=== PATIENT | female | born 1955 | race Caucasian/White ===

== ENCOUNTER 2022-07-10 07:58 | Outpatient (CLI) | payer MEDICARE, SELFPAY ==
[2022-07-10 19:45] LABS: Alanine Aminotransferase 19 U/L (6-35); Alkaline Phosphatase 98 U/L (38-126); Anion Gap 15 mmol/L (8-16); Aspartate Amino Transferase 19 U/L (14-36); Bilirubin,Total 0.4 mg/dL (0.2-1.3); Blood Urea Nitrogen 12 mg/dL (7-17); Calcium 9.3 mg/dL (8.4-10.2); Carbon Dioxide 26 mmol/L (22-30); Chloride 100 mmol/L (98-107); Cholesterol 180 mg/dL (0-200); Estimated Glomerular Filt Rate > 60; Glucose 121 mg/dL (65-110); HDL Direct 55 mg/dL; Sodium 141 mmol/L (137-145); Triglycerides 228 mg/dL (<150)
[2022-07-10 19:47] LABS: Basophils Absolute Auto 0.1 K/mm3 (0.0-0.1); Basophils Percent Auto 0.4 % (0.2-1.2); Eosinophils Absolute Auto 0.2 K/mm3 (0-0.3); Eosinophils Percent Auto 0.9 % (0-4.4); Hematocrit 37.7 % (37.0-47.0); Hemoglobin 12.1 g/dL (12.0-15.0); Immature Granulocyte Percent A 0.5 % (0-0.5); Lymphocytes Absolute Auto 13.39 K/mm3 (0.9-3.2); Lymphocytes Percent Auto 71.5 % (18.3-44.2); Mean Corpuscular HGB Conc 32.1 g/dl (32-36); Mean Corpuscular Hemoglobin 28.7 pg (26-34); Mean Corpuscular Volume 89.3 fl (80-100); Mean Platelet Volume 11.7 fl (7.4-10.4); Monocytes Absolute Auto 1.1 K/mm3 (0.1-0.6); Neutrophils Absolute Auto 3.9 K/mm3 (1.3-6.7); Neutrophils Percent Auto 20.7 % (45.5-73.1); Platelet Count Result 190 k/mm3 (150-375); Red Blood Count 4.22 M/mm3 (4.2-5.4); Red Cell Distribution Width 13.5 % (11.5-14.5); White Blood Count 18.7 K/mm3 (4.5-10.0)
[2022-07-10 19:56] LABS: LDL Cholesterol Direct 71 mg/dL
[2022-07-10 20:02] LABS: Vitamin D 25 Hydroxy 27.5 ng/mL
[2022-07-10 20:10] LABS: Hemoglobin A1C 6.2 % (<5.7)
[2022-07-10 20:12] LABS: Microalbumin Urine Random 7.7 mg/L (0-16.7)
[2022-07-10 20:13] LABS: Creatinine Urine 79.3 mg/dL; MALB Creatinine Ratio 9.7 mg/g (0-30)
[2022-07-10 20:15] LABS: Thyroid Stimulating Hormone 0.202 uIU/mL (0.465-4.680)
== END 2022-07-10 07:59 | disposition home or self-care (01) ==
LOC: ANHGOSHLAB 08:01
PROVIDERS: PCP Family Medicine; Visit Provider Family Medicine
DX: C91.10 Chronic lymphocytic leukemia of B-cell type not having achieved remission (principal); E10.8 Type 1 diabetes mellitus with unspecified complications; Z96.41 Presence of insulin pump (external) (internal); E07.9 Disorder of thyroid, unspecified; Z78.0 Asymptomatic menopausal state; Z79.899 Other long term (current) drug therapy
CPT/HCPCS: 36415; 80053; 80061; 82043; 82306; 83036; 84443; 85025

== ENCOUNTER 2022-09-17 09:09 | Outpatient (CLI) | payer MEDICARE, SELFPAY ==
[2022-09-17 09:57] LABS: Basophils Absolute Auto 0.1 K/mm3 (0.0-0.1); Basophils Percent Auto 0.4 % (0.2-1.2); Eosinophils Absolute Auto 0.2 K/mm3 (0-0.3); Hematocrit 38.7 % (37.0-47.0); Hemoglobin 12.3 g/dL (12.0-15.0); Immature Granulocyte Percent A 0.5 % (0-0.5); Lymphocytes Absolute Auto 13.81 K/mm3 (0.9-3.2); Mean Corpuscular HGB Conc 31.8 g/dl (32-36); Mean Corpuscular Hemoglobin 28.3 pg (26-34); Mean Platelet Volume 11.5 fl (7.4-10.4); Monocytes Absolute Auto 0.6 K/mm3 (0.1-0.6); Neutrophils Absolute Auto 3.9 K/mm3 (1.3-6.7); Neutrophils Percent Auto 21.1 % (45.5-73.1); Platelet Count Result 218 k/mm3 (150-375); Red Blood Count 4.35 M/mm3 (4.2-5.4); Red Cell Distribution Width 14.1 % (11.5-14.5); White Blood Count 18.7 K/mm3 (4.5-10.0)
[2022-09-17 10:13] LABS: Alanine Aminotransferase 30 U/L (6-35); Albumin Level 4.2 g/dL (3.5-5.1); Alkaline Phosphatase 115 U/L (38-126); Anion Gap 9 mmol/L (8-16); Aspartate Amino Transferase 25 U/L (14-36); Bilirubin,Total 0.5 mg/dL (0.2-1.3); Blood Urea Nitrogen 15 mg/dL (7-17); Carbon Dioxide 27 mmol/L (22-30); Chloride 101 mmol/L (98-107); Cholesterol 184 mg/dL (0-200); Estimated Glomerular Filt Rate > 60; Glucose 175 mg/dL (65-110); HDL Direct 57 mg/dL; Potassium 4.1 mmol/L (3.4-5.0); Sodium 137 mmol/L (137-145); Triglycerides 215 mg/dL (<150)
[2022-09-17 10:20] LABS: LDL Cholesterol Direct 72 mg/dL
[2022-09-17 10:41] LABS: Thyroid Stimulating Hormone 0.048 uIU/mL (0.465-4.680)
[2022-09-17 10:58] LABS: Hepatitis C Virus Antibody Negative (Negative)
[2022-09-17 11:49] LABS: Creatinine Urine 115.5 mg/dL
[2022-09-17 11:51] LABS: Hemoglobin A1C 6.3 % (<5.7)
[2022-09-17 11:53] LABS: MALB Creatinine Ratio 6.9 mg/g (0-30)
[2022-09-17 14:25] LABS: Free T4 Free Thyroxine 1.48 ng/mL (0.78-2.19)
== END 2022-09-17 09:10 | disposition home or self-care (01) ==
PROVIDERS: PCP Family Medicine; Visit Provider Physician Assistant
DX: I10 Essential (primary) hypertension (principal); K21.9 Gastro-esophageal reflux disease without esophagitis; E66.09 Other obesity due to excess calories; Z68.30 Body mass index [BMI] 30.0-30.9, adult; E10.8 Type 1 diabetes mellitus with unspecified complications; Z96.41 Presence of insulin pump (external) (internal); C91.10 Chronic lymphocytic leukemia of B-cell type not having achieved remission; Z79.899 Other long term (current) drug therapy
CPT/HCPCS: 36415; 80053; 80061; 82043; 83036; 84439; 84443; 85025; 86803

== ENCOUNTER 2022-10-09 08:25 | Outpatient (CLI) | payer MEDICARE, SELFPAY ==
[2022-10-09 08:38] LABS: Basophils Absolute Auto 0.1 K/mm3 (0.0-0.1); Basophils Percent Auto 0.3 % (0.2-1.2); Eosinophils Absolute Auto 0.1 K/mm3 (0-0.3); Eosinophils Percent Auto 0.5 % (0-4.4); Hematocrit 37.5 % (37.0-47.0); Hemoglobin 11.9 g/dL (12.0-15.0); Immature Granulocyte Absolute 0.11 K/mm3 (0.00-0.031); Immature Granulocyte Percent A 0.5 % (0-0.5); Lymphocytes Absolute Auto 15.56 K/mm3 (0.9-3.2); Lymphocytes Percent Auto 71.3 % (18.3-44.2); Mean Corpuscular HGB Conc 31.7 g/dl (32-36); Mean Corpuscular Hemoglobin 28.1 pg (26-34); Mean Corpuscular Volume 88.4 fl (80-100); Monocytes Absolute Auto 0.7 K/mm3 (0.1-0.6); Neutrophils Absolute Auto 5.3 K/mm3 (1.3-6.7); Neutrophils Percent Auto 24.4 % (45.5-73.1); Platelet Count Result 187 k/mm3 (150-375); Red Blood Count 4.24 M/mm3 (4.2-5.4); Red Cell Distribution Width 14.1 % (11.5-14.5); White Blood Count 21.8 K/mm3 (4.5-10.0)
[2022-10-09 08:42] LABS: Atypical Lymphocytes Present; Platelet Estimate Adequate (Adequate); Schistocytes None Seen (NORMAL)
[2022-10-09 09:11] LABS: Alanine Aminotransferase 30 U/L (6-35); Albumin Level 4.2 g/dL (3.5-5.1); Alkaline Phosphatase 114 U/L (38-126); Anion Gap 6 mmol/L (8-16); Aspartate Amino Transferase 31 U/L (14-36); Bilirubin,Total 0.6 mg/dL (0.2-1.3); Blood Urea Nitrogen 15 mg/dL (7-17); Calcium 9.2 mg/dL (8.4-10.2); Carbon Dioxide 29 mmol/L (22-30); Chloride 99 mmol/L (98-107); Estimated Glomerular Filt Rate 55; Glucose 171 mg/dL (65-110); Potassium 4.3 mmol/L (3.4-5.0); Sodium 134 mmol/L (137-145)
== END 2022-10-09 08:26 | disposition home or self-care (01) ==
LOC: ANHLAB 08:26
PROVIDERS: PCP Family Medicine; Visit Provider Internal Medicine Hematology & Oncology
DX: C91.10 Chronic lymphocytic leukemia of B-cell type not having achieved remission (principal)
CPT/HCPCS: 36415; 80053; 85025

== ENCOUNTER 2022-11-05 14:57 | Outpatient (CLI) | payer MEDICARE, SELFPAY ==
[2022-11-05 18:23] LABS: Thyroid Stimulating Hormone 0.165 uIU/mL (0.465-4.680)
[2022-11-05 19:57] LABS: Free T4 Free Thyroxine 1.55 ng/mL (0.78-2.19)
== END 2022-11-05 14:58 | disposition home or self-care (01) ==
LOC: ANHWCLAB 14:59
PROVIDERS: PCP Family Medicine; Visit Provider Internal Medicine Endocrinology, Diabetes & Metabolism
DX: E03.9 Hypothyroidism, unspecified (principal); E10.649 Type 1 diabetes mellitus with hypoglycemia without coma; M85.80 Other specified disorders of bone density and structure, unspecified site
CPT/HCPCS: 36415; 84439; 84443

== ENCOUNTER 2022-11-16 12:07 | Emergency (ER) | payer MEDICARE, SELFPAY ==
[2022-11-16 12:13] VITALS: BP 114/72; PULSE 75; RESP 16; TEMP 36.4; O2SAT 97
--- NOTE | 2022-11-16 12:21 | ED.URI ---
HPI - URI/Sore Throat General Chief Complaint: Upper Respiratory Infection Stated Complaint: shortness of breath, cough, wheezing, congestion Time Seen by Provider: 11/16/22 12:21 Source: patient, RN notes reviewed and old records reviewed Mode of arrival: ambulatory Limitations: no limitations History of Present Illness HPI Narrative: 66 year old female who presents to [facility] care with complaints of cold symptoms which has turned into a harsh cough with some shortness of breath and wheezing over the past week. Patient reports that at times she feels like she can't catch her breath. Patient states that she called her doctors office but they couldn't get her in to be seen. Patient reports history of asthma and bronchitis in the past.She states that she has been taking Mucinex and Tesslon Perles without relief. Patient reports highest temp 99F. MD elicited complaint: cough and other (wheezing and shortness of breath, congestion) Pertinent past history: pneumonia, asthma and other (bronchitis) Onset (ago): week(s) (1) Consistency: progressively worsening Pain scale (0-10): 2 Able to tolerate fluids by mouth: Yes Exacerbating factors: exertion Treatments prior to arrival: other (Muci Tesslon Perlesnex,) Related Data Home Medications Medication Instructions Recorded Confirmed alpha lipoic acid 50 mg capsule 50 mg PO DAILY 07/08/22 11/05/22 amlodipine 2.5 mg tablet 2.5 mg PO DAILY 07/08/22 11/05/22 hydrocortisone 20 mg tablet 20 mg PO DAILY 07/08/22 11/05/22 omeprazole 20 mg capsule,delayed 20 mg PO DAILY 07/08/22 11/05/22 release aspirin 81 mg tablet,delayed 81 mg PO DAILY 09/21/22 11/05/22 release cholecalciferol (vitamin D3) 25 25 mcg PO DAILY 09/21/22 11/05/22 mcg (1,000 unit) capsule insulin lispro 100 unit/mL 1 sliding scale dose subcut 11/05/22 11/05/22 subcutaneous solution (Humalog USEASDIRECTD U-100 Insulin) omnipod insulin delivery system 11/05/22 11/05/22 Allergies Allergy/AdvReac Type Severity Reaction Status Date / Time No Known Allergies Allergy Verified 11/05/22 13:33 Review of Systems Review of Systems: CONSTITUTIONAL:Reports malaise, chills, sweats, or fever. EYES: Denies visual changes, redness, or discharge. ENT: Reports rhinorrhea, congestion,no sinus pain, no otalgia, no sore throat. CARDIOVASCULAR: Denies chest pain, palpitations, or edema. RESPIRATORY: Reports cough.? Reports dyspnea with exertion. GASTROINTESTINAL: Denies abdominal pain, nausea, vomiting, diarrhea SKIN: Denies rash or itching. MUSCULOSKELETAL:Reports some myalgia. NEUROLOGIC: Denies headache. All systems reviewed & are unremarkable except as noted in HPI and below PMFSH Past Medical History Medical History (Updated 11/17/22 @ 10:26 by Aleida Garrett NP) Anxiety Asthma Bronchitis Cancer Frequent loose stools GERD (gastroesophageal reflux disease) HTN (hypertension) Kidney disease Trigger finger Surgical History Surgical History History of carpal tunnel release Family History Family History Mother Patient's mother is , Onset Age: 69 Family history of malignant neoplasm of ovary Father Patient's father is Diabetes mellitus, Onset Age: 64 Sibling Cerebrovascular accident, Onset Age: 23 Other Depression Family history of hearing loss Social History Social History Social History: Caffeine-Coffee, Tea, soda Smoking packs per day: 1 Smoking cigarettes per day: 20.0 Years smoked: 5 Smoking pack-years: 5.00 Smoking status: Former smoker Smoking end date: 06/13/87 Alcohol intake: current Alcohol use details: Wine-on weekends Substance use: never Substance use type: does not use Comments At time of signature, agree with nursing past medical, s
== END 2022-11-16 12:44 | disposition home or self-care (01) ==
PROVIDERS: Emergency Provider Registered Nurse; PCP Family Medicine
DX: J40 Bronchitis, not specified as acute or chronic (principal); I10 Essential (primary) hypertension; Z87.891 Personal history of nicotine dependence
CPT/HCPCS: 99213; G0463

== ENCOUNTER 2022-11-20 17:40 | Observation (INO) | payer MEDICARE, SELFPAY ==
--- NOTE | ~2022-11-20 | XR_ITS ---
EXAMINATION: XR chest 2V DATE: 11/20/2022 18:25 INDICATION: Shortness of breath and weakness TECHNIQUE: frontal and lateral views of the chest were obtained. COMPARISON: Chest radiograph dated 10/24/2017 FINDINGS: The lungs remain clear with no focal airspace opacities, pulmonary edema, pleural effusion or pneumot horax. The cardiomediastinal silhouette is normal. IMPRESSION: 1. No acute cardiopulmonary disease. Reviewed, dictated and finalized at location A. FILTER TANK TENDER
--- NOTE | ~2022-11-20 | CT_ITS ---
EXAMINATION: CTA chest PE protocol DATE: 11/20/2022 19:56 INDICATION: Tachypnea and shortness of breath. TECHNIQUE: Computed tomography (CT) pulmonary angiogram of the chest was performed with 100 mL Omnipa que-350 intravenous contrast. Additional 3D reconstructions utilizing coronal maximum intensity proje ction (MIP) were performed. Automated exposure control and iterative reconstruction technique were em ployed. The dose-length product was 496.21 mGy-cm. COMPARISON: None FINDINGS: Excellent contrast opacification of the pulmonary arteries. There is mild streak artifact from dense contrast in the superior vena cava and right atrium. No significant motion artifact yielding diagnost ic quality study which demonstrates no pulmonary embolism. No pneumonia, pulmonary edema, pleural eff usion or pneumothorax. Heart size is normal. No pericardial effusion. Thoracic aorta is normal in tasha iber with no dissection. No pathologically enlarged thoracic lymphadenopathy. Visualized upper abdome n is unremarkable. Moderate thoracic and severe upper lumbar spondylosis. IMPRESSION: 1. No acute cardiopulmonary disease. Reviewed, dictated and finalized at location A. ATRIC NEUROPSYCHOLOGIST
--- NOTE | 2022-11-20 18:00 | ECG_ITS ---
Measurements Intervals [place] Rate: 72 P: 57 AK: 133 QRS: 37 QRSD: 93 T: 55 QT: 390 QTc: 427 Interpretive Statements SINUS RHYTHM EARLY PRECORDIAL R/S TRANSITION ST-T WAVE ABNORMALITY IN ANT/INF LEADS- CONSIDER ISCHEMIA BASELINE ARTIFACT- I, II, III, AVR, AVF, V4 ABNORMAL ECG NO PREVIOUS ECG AVAILABLE FOR COMPARISON Electronically Signed On 11-20-2022 21:01:47 SALVAGE DETERMINER by Chris Scales D.O.
[2022-11-20 18:52] LABS: Hematocrit 37.8 % (37.0-47.0); Hemoglobin 12.6 g/dL (12.0-15.0); Mean Corpuscular HGB Conc 33.3 g/dl (32-36); Mean Corpuscular Volume 87.1 fl (80-100); Mean Platelet Volume 11.4 fl (7.4-10.4); Platelet Count Result 259 k/mm3 (150-375); Red Blood Count 4.34 M/mm3 (4.2-5.4); Red Cell Distribution Width 14.6 % (11.5-14.5); White Blood Count 35.3 K/mm3 (4.5-10.0)
[2022-11-20] MEDS: LORazepam INJ (*CRX) 2 MG/ML VIAL 0.5 MG IV PUSH ×2 (19:01→21:24)
[2022-11-20 19:02] LABS: INR 1.2; Prothrombin Time 14.5 Seconds (11.1-14.7)
[2022-11-20] MEDS: LACTATED RINGERS 1,000 ML 999 ML IV CONT ×2 (19:02→20:38)
[2022-11-20 19:03] LABS: Partial Thromboplastin Time 24.4 SECONDS (22.3-36.8)
[2022-11-20 19:10] LABS: Lymphocytes Absolute Manual 18.35 K/mm3 (1.1-4.5); Monocytes Percent Manual 2 % (3-9); Neutrophils Percent Manual 46 % (46-73); Platelet Estimate Adequate (Adequate); Schistocytes None Seen (NORMAL); Total Cells Counted 100
[2022-11-20 19:15] LABS: Beta-Hydroxybutyrate/Acetoacetate 0.14 mmol/L (0.02-0.27)
[2022-11-20 19:19] LABS: Alanine Aminotransferase 35 U/L (6-35); Albumin Level 4.5 g/dL (3.5-5.1); Alkaline Phosphatase 129 U/L (38-126); Anion Gap 10 mmol/L (8-16); Aspartate Amino Transferase 38 U/L (14-36); Bilirubin,Total 0.4 mg/dL (0.2-1.3); Blood Urea Nitrogen 14 mg/dL (7-17); Calcium 9.7 mg/dL (8.4-10.2); Carbon Dioxide 18 mmol/L (22-30); Chloride 102 mmol/L (98-107); Estimated Glomerular Filt Rate > 60; Glucose 184 mg/dL (65-110); Potassium 4.2 mmol/L (3.4-5.0); Sodium 130 mmol/L (137-145)
[2022-11-20 19:22] LABS: Fractional Inspired Oxygen 21 %; HCO3 VBG 17.1 mEq/l (24.0-30.0); PO2 VBG 56.3 mmHg (35.0-45.0)
[2022-11-20 19:25] LABS: pH VBG 7.567 (7.300-7.400)
[2022-11-20 19:26] LABS: Device ROOM AIR; PCO2 VBG 19.2 mmHg (42.0-48.0)
[2022-11-20 19:31] LABS: NT Pro B Type Natriuretic Pept 335 pg/mL (19.9-100); Troponin I < 0.012 ng/mL (0.000-0.034)
[2022-11-20 19:34] LABS: Lactic Acid Reflex 3.3 mmol/L (0.7-2.0)
--- NOTE | 2022-11-20 19:35 | ED.WEAKNESS ---
HPI - Weakness General Chief complaint: Weakness Stated complaint: near syncopal/bronchitis Time Seen by Provider: 11/20/22 18:08 History of Present Illness HPI Narrative: Patient is a 66-year-old female with a history of type 1 diabetes, hypertension, GERD presenting with shakiness. Patient states that she has had URI symptoms for the last week or so. She was seen at urgent care 4 days ago and started on prednisone, Z-Say, and given an inhaler. States that she has been taking a Z-Say and steroids and her breathing feels slightly better. States she still has a mild cough. Today around noon she started to feel shaky all over. States that it feels like she is trembling on the insides. She denies worsening dyspnea, chest pain, vomiting, diarrhea, dysuria, leg swelling. States that she has been feeling lightheaded. Related Data Home Medications Medication Instructions Recorded Confirmed alpha lipoic acid 50 mg capsule 50 mg PO DAILY 07/08/22 11/21/22 amlodipine 2.5 mg tablet 2.5 mg PO DAILY 07/08/22 11/21/22 cholecalciferol (vitamin D3) 25 25 mcg PO DAILY 09/21/22 11/21/22 mcg (1,000 unit) capsule insulin lispro 100 unit/mL 1 sliding scale dose subcut 11/05/22 11/21/22 subcutaneous solution (Humalog USEASDIRECTD U-100 Insulin) omnipod insulin delivery system 11/05/22 11/21/22 fluoxetine 40 mg capsule 80 mg PO DAILY 11/21/22 11/21/22 Allergies Allergy/AdvReac Type Severity Reaction Status Date / Time No Known Allergies Allergy Verified 11/05/22 13:33 Review of Systems Review of Systems: All systems reviewed & are unremarkable except as noted in HPI and below PMFSH Past Medical History Medical History Anxiety Asthma Bronchitis Cancer Frequent loose stools GERD (gastroesophageal reflux disease) HTN (hypertension) Kidney disease Trigger finger Surgical History Surgical History History of carpal tunnel release Family History Family History Mother Patient's mother is , Onset Age: 69 Family history of malignant neoplasm of ovary Father Patient's father is Diabetes mellitus, Onset Age: 64 Sibling Cerebrovascular accident, Onset Age: 23 Other Depression Family history of hearing loss Social History Social History Social History: Caffeine-Coffee, Tea, soda Smoking packs per day: 1 Smoking cigarettes per day: 20.0 Years smoked: 5 Smoking pack-years: 5.00 Smoking status: Former smoker Tobacco type: cigarettes Smoking end date: 09/13/97 Alcohol intake: current Drinks per week: 6 Alcohol use details: Wine-on weekends Substance use: never Substance use type: does not use Lack of Transportation: No Lack of Food: Never True Current Housing: I Have Housing Concerned About Future Housing: No Difficulty Paying Gas/Electric Bills: No Difficulty Paying for Meds: No Currently Unemployed: No Education: High School Diploma/GED Difficulty w/ Childcare or Family Care: No Spiritual care concerns: No Exam Narrative: GENERAL: Well-appearing, well-nourished, and in no acute distress. HEAD: Normocephalic, atraumatic. EYES: PERRLA and EOMI. ENT: Nares clear, no rhinorrhea or epistaxis. Mucous membranes moist. NECK: Supple. CHEST: tachypneic, breathing with pierced lips, no wheezing heard HEART: Regular rate and rhythm. No murmur heard. Normal peripheral pulses. ABDOMEN: Soft, nontender, nondistended EXTREMITIES: Normal range of motion. No edema. SKIN: Warm, dry, no rash. NEURO: No focal deficits. Alert and oriented x3. PSYCH: Normal mood and affect. Course Vital Signs Vital signs: Vital Signs Temperature 98.6 F 11/20/22 20:19 Pulse Rate 64 11/20/22 20:19 Respiratory Rate 20
[2022-11-20 19:36] LABS: Influenza A QL RT-PCR Negative (Negative); Influenza B QL RT-PCR Negative (Negative); SARS-CoV-2 RNA PCR Negative
[2022-11-20 20:19] VITALS: BP 168/69; PULSE 64; RESP 20; TEMP 37; O2SAT 98
[2022-11-20 20:52] LABS: Appearance Urine Clear (Clear); Bacteria Urine None Seen /hpf; Bilirubin Urine Negative (Negative); Blood Urine Negative (Negative); Color Urine Yellow (Yellow); Glucose Urine UA Negative (Negative); Ketones Urine Negative (Negative); Leukocyte Esterase Ur 2+ LEU/UL (Negative); Nitrate Urine Negative (Negative); Non Pathogenic Casts 0-2; Protein Urine Negative (Negative); RBC Urine 0-2 /hpf (0-2); Specific Grav Ur 1.012 (1.001-1.035); Squamous Epithelial Cell Urine Few /hpf (Few); Urobilinogen Urine 0.2 mg/dL (<2.0); WBC Urine 0-5 /hpf; pH Urine 7.5 (5.0-9.0)
[2022-11-20 20:56] LABS: Add Urine Microscopic? YES
--- NOTE | 2022-11-20 21:27 | PM.IMHP ---
H&P: HPI History of Present Illness Date/Time: 11/20/22 21:27 Chief Complaint: Weakness Narrative: This is a 66-year-old female with past medical history significant for insulin-dependent diabetes mellitus status post insulin pump implantation, COPD/emphysema, hypertension, generalized anxiety disorder, hypothyroidism, gastroesophageal reflux disease, patient presents to the emergency room due to generalized weakness, tremors, shortness of breath, wheezing states that just completed course of antibiotics for diverticulitis and fell with COPD exacerbation has been on p.o. steroids as well presents to the emergency room with complains of generalized weakness, tremors, fatigue, shortness of breath, cough, no sputum production, no fevers, no rigors, no chills. Preliminary workup was significant for CBC with leukocyte count of 35,000, a CT PE protocol was reported as: FINDINGS: Excellent contrast opacification of the pulmonary arteries. There is mild streak artifact from dense contrast in the superior vena cava and right atrium. No significant motion artifact yielding diagnostic quality study which demonstrates no pulmonary embolism. No pneumonia, pulmonary edema, pleural effusion or pneumothorax. Heart size is normal. No pericardial effusion. Thoracic aorta is normal in caliber with no dissection. No pathologically enlarged thoracic lymphadenopathy. Visualized upper abdomen is unremarkable. Moderate thoracic and severe upper lumbar spondylosis. IMPRESSION: 1. No acute cardiopulmonary disease. Patient tested negative for influenza type A type B and COVID-19 Patient has been admitted for further evaluation management and treatment. Review of Systems Review of Systems: Shortness of breath, generalized weakness, tremors. Constitutional: Constitutional: Denies chills, Denies fever(s), Denies malaise and Reports weakness Eyes: Eyes: Denies change in vision ENT: Denies dysphagia and Denies odynophagia Cardiovascular: Cardiovascular: Denies chest pain, Denies lightheadedness and Reports dyspnea Respiratory: Respiratory: Denies change in phlegm color, Reports cough, Denies excessive phlegm production, Reports dyspnea, Reports dyspnea on exertion and Reports wheezing Gastrointestinal: Gastrointestinal: Denies abdominal pain, Denies dyspepsia, Denies heartburn, Denies nausea and Denies vomiting Genitourinary: Genitourinary: Denies dysuria Musculoskeletal: Musculoskeletal: Reports muscle weakness Integumentary/Breasts: Skin/Breast: Denies rash Neurologic: Denies focal weakness and Denies Sensory deficit (Neuro) Psychiatric: Psychiatric: Reports no additional psychiatric complaints and Reports as per HPI Endocrine: Endocrine: Denies cold intolerance, Reports fatigue, Denies flushing, Denies heat intolerance, Denies polyphagia, Denies polydipsia and Denies palpitations Hematologic/Lymphatic: Hematologic/Lymphatic: Reports no additional hematologic/lymphatic complaints and Reports as per HPI Allergic/Immunologic: Allergic/Immunologic: Reports no additional allergic/immunologic complaints and Reports as per HPI PMFSH Past Medical History Medical History Anxiety Asthma Bronchitis Cancer Frequent loose stools GERD (gastroesophageal reflux disease) HTN (hypertension) Kidney disease Trigger finger Surgical History Surgical History History of carpal tunnel release Family History Family History Mother Patient's mother is , Onset Age: 69 Family history of malignant neoplasm of ovary Father Patient's father is Diabetes mellitus, Onset Age: 64 Sibling Cerebrovascular accident, Onset Age: 23 Other Depression Family history of hearing loss Social History Social History (Reviewed 11/20/22 @ 19:37 by Britany Shafer
[2022-11-20 22:17] VITALS: BP 157/79; PULSE 56; RESP 20; O2SAT 100
[2022-11-20 22:18] VITALS: PULSE 61
[2022-11-20 22:22] LABS: Reflex Lactic Acid Yes or No Add Lactic
[2022-11-20 22:43] LABS: Troponin I < 0.012 ng/mL (0.000-0.034)
[2022-11-20 23:38] LABS: Glucose Point of Care 106 mg/dl (65-105)
[2022-11-21 00:37] LABS: Lactic Acid 2.9 mmol/L (0.7-2.0)
--- NOTE | 2022-11-21 00:42 | ADMGEN ---
This patient, Jennifer Dahl, was admitted to 2 Medical Room 255-01. Patient/family oriented to hospital policies and general routines including ID bracelet, bed and alarms, visiting hours, pain management, procedures, bathroom and other care routines, personal items, smoking policy, room service/diet, and visiting hours. Information on how to activate the Rapid Response Team has been discussed. Patient/Family are encouraged to report perceived risks to care and to ask questions if they do not understand what they are told or what they should do.
[2022-11-21 00:45] VITALS: BP 165/69; PULSE 58; RESP 20; TEMP 36.7; O2SAT 100; BMI 30.5
[2022-11-21 01:17] LABS: Thyroid Stimulating Hormone Reflex 0.805 uIU/mL (0.465-4.68)
[2022-11-21] MEDS: ALPRAZolam (*CRX) 0.5 MG TABLET 1 MG PO ×2 (02:17→21:24)
[2022-11-21 02:21] LABS: Troponin I < 0.012 ng/mL (0.000-0.034)
[2022-11-21 04:18] LABS: Need Manual Microscopic Reviewed
[2022-11-21 06:00] VITALS: BP 118/51; PULSE 72; RESP 20; TEMP 36.6; O2SAT 99
[2022-11-21] MEDS: lamoTRIgine 50 MG TABLET 150 MG PO (08:36)
[2022-11-21] MEDS: FLUoxetine HCL 20 MG CAPSULE 80 MG PO (08:37)
[2022-11-21] MEDS: IRBESARTAN 150 MG TABLET 300 MG PO (08:37)
[2022-11-21] MEDS: CHOLECALCIFEROL 1,000 UNITS TABLET 1000 UNITS PO (08:37)
[2022-11-21] MEDS: LEVOTHYROXINE SODIUM 150 MCG TABLET PO (08:37)
[2022-11-21] MEDS: PANTOPRAZOLE 40 MG TABLET PO (08:38)
[2022-11-21 08:40] VITALS: O2SAT 99
[2022-11-21 08:43] VITALS: BP 138/88; PULSE 66; RESP 14; O2SAT 99
[2022-11-21] MEDS: amLODIPine BESYLATE 2.5 MG TABLET PO (08:45)
[2022-11-21] MEDS: ATORVASTATIN 40 MG TABLET PO (08:48)
[2022-11-21 08:52] LABS: Glucose Point of Care 111 mg/dl (65-105)
--- NOTE | 2022-11-21 09:00 | PM.IMPN ---
Progress Note: A&P Assessment and Plan (1) COPD exacerbation: Code(s): J44.1 - Chronic obstructive pulmonary disease with (acute) exacerbation Status: Acute Assessment and Plan: CTA does not indicate any PE, nor any acute abnormalities Endorses increased shortness of breath, cough with sputum changes, and wheezes Appears to be an acute exacerbation of COPD at this time Schedule breathing treatments Change to IV Levaquin, since she failed outpatient treatments Supportive care Systemic steroids, changed to PO prednisone 40mg PO daily Add Claritin D for congestion relief Add Mucinex for the cough (2) Type 1 diabetes mellitus without complication, with terminal carman current use of insulin pump: Code(s): E10.9 - Type 1 diabetes mellitus without complications; Z96.41 - Presence of insulin pump (external) (internal) Status: Acute Assessment and Plan: Patient has been having hypoglycemic episodes due to poor diet in the last 2 weeks after having diverticulitis and COPD exacerbation Hypoglycemic protocol Hold home insulin Continue to trend glucose Accu-Cheks AC/HS (3) GERD (gastroesophageal reflux disease): Code(s): K21.9 - Gastro-esophageal reflux disease without esophagitis Status: Acute Assessment and Plan: PPI (4) Coarse tremors: Code(s): G25.2 - Other specified forms of tremor Status: Acute Assessment and Plan: could be a combination of hypoglycemia along with LABA and LAMA use as well as oral steroid Continue to monitor Resolved at this time (5) Leukocytosis: Code(s): D72.829 - Elevated white blood cell count, unspecified Status: Acute Assessment and Plan: WBC 27640 upon presentation Currently 30.1 Most likely a combination of steroids and CLL Baseline WBC appears to be 18 Continue to trend (6) CLL (chronic lymphocytic leukemia): Code(s): C91.10 - Chronic lymphocytic leukemia of B-cell type not having achieved remission Status: Acute Assessment and Plan: Follow-up in outpatient setting (7) Anxiety: Code(s): F41.9 - Anxiety disorder, unspecified Status: Acute Assessment and Plan: Continue home meds Time Spent With Patient Time: 51 minutes Time with patient: Greater than 35 minutes Subjective Date/time seen: 11/21/22899 Interval history: 11/21/22899 Patient is doing ok. She sound congested and stated that she did feel pretty congested. She denies any chest pain, shortness of breath, nausea, vomiting, diarrhea, or constipation. WBC is elevated however trending down. She does feel better today. She stated that the tremors are better today, and the shortness of breath is better as well. Spoke about her WBC and she stated that she feels it is her CLL. She also called me back to the room and stated that she started to have some diarrhea. Concern about the antibiotic use recently, which she stated she has one dose left, there could be a componet of C.diff. While asking her about breathing she would really refer to Bronchitis. She denies any body aches, weakness, fatigue, fevers, sweats or chills. She also stated that she has a cough, however it is non productive, but loose. 11/20/22? 21:27 This is a 66-year-old female with past medical history significant for insulin-dependent diabetes mellitus status post insulin pump implantation, COPD/emphysema, hypertension, generalized anxiety disorder, hypothyroidism, gastroesophageal reflux disease, patient presents to the emergency room due to generalized weakness, tremors, shortness of breath, wheezing states that just completed course of antibiotics for diverticulitis and fell with COPD exacerbation has been on p.o. steroids as well presents to the emergency room with complains of generalized weakness, tremors,
--- NOTE | 2022-11-21 09:00 | P.PNIM_ITS ---
Progress Note: A&P Assessment and Plan (1) COPD exacerbation: Code(s): J44.1 - Chronic obstructive pulmonary disease with (acute) exacerbation Status: Acute Assessment and Plan: * CTA does not indicate any PE, nor any acute abnormalities * Endorses increased shortness of breath, cough with sputum changes, and wheezes * Appears to be an acute exacerbation of COPD at this time * Schedule breathing treatments * Change to IV Levaquin, since she failed outpatient treatments * Supportive care * Systemic steroids, changed to PO prednisone 40mg PO daily * Add Claritin D for congestion relief * Add Mucinex for the cough (2) Type 1 diabetes mellitus without complication, with longterm current use of insulin pump: Code(s): E10.9 - Type 1 diabetes mellitus without complications; Z96.41 - Presence of insulin pump (external) (internal) Status: Acute Assessment and Plan: * Patient has been having hypoglycemic episodes due to poor diet in the last 2 weeks after having diverticulitis and COPD exacerbation * Hypoglycemic protocol * Hold home insulin * Continue to trend glucose * Accu-Cheks AC/HS (3) GERD (gastroesophageal reflux disease): Code(s): K21.9 - Gastro-esophageal reflux disease without esophagitis Status: Acute Assessment and Plan: * PPI (4) Coarse tremors: Code(s): G25.2 - Other specified forms of tremor Status: Acute Assessment and Plan: * could be a combination of hypoglycemia along with LABA and LAMA use as well as oral steroid * Continue to monitor * Resolved at this time (5) Leukocytosis: Code(s): D72.829 - Elevated white blood cell count, unspecified Status: Acute Assessment and Plan: * WBC 11770 upon presentation * Currently 30.1 * Most likely a combination of steroids and CLL * Baseline WBC appears to be 18 * Continue to trend (6) CLL (chronic lymphocytic leukemia): Code(s): C91.10 - Chronic lymphocytic leukemia of B-cell type not having achieved remission Status: Acute Assessment and Plan: * Follow-up in outpatient setting (7) Anxiety: Code(s): F41.9 - Anxiety disorder, unspecified Status: Acute Assessment and Plan: * Continue home meds Time Spent With Patient Time: 51 minutes Time with patient: Greater than 35 minutes Subjective Date/time seen: 11/21/22899 Interval history: 03/11/23 0900 Patient is doing ok. She sound congested and stated that she did feel pretty congested. She denies any chest pain, shortness of breath, nausea, vomiting, diarrhea, or constipation. WBC is elevated however trending down. She does feel better today. She stated that the tremors are better today, and the shortness of breath is better as well. Spoke about her WBC and she stated that she feels it is her CLL. She also called me back to the room and stated that she started to have some diarrhea. Concern about the antibiotic use recently, which she stated she has one dose left, there could be a componet of C.diff. While asking her about breathing she would really refer to Bronchitis. She denies any body aches, weakness, fatigue, fevers, sweats or chills. She also stated that she has a cough, however it is non productive, but loose.
[2022-11-21 09:31] LABS: Basophils Absolute Auto 0.1 K/mm3 (0.0-0.1); Basophils Percent Auto 0.3 % (0.2-1.2); Eosinophils Absolute Auto 0.1 K/mm3 (0-0.3); Eosinophils Percent Auto 0.4 % (0-4.4); Hematocrit 34.8 % (37.0-47.0); Hemoglobin 11.1 g/dL (12.0-15.0); Immature Granulocyte Absolute 0.21 K/mm3 (0.00-0.031); Immature Granulocyte Percent A 0.7 % (0-0.5); Lymphocytes Absolute Auto 23.26 K/mm3 (0.9-3.2); Lymphocytes Percent Auto 77.3 % (18.3-44.2); Mean Corpuscular HGB Conc 31.9 g/dl (32-36); Mean Corpuscular Hemoglobin 28.5 pg (26-34); Mean Corpuscular Volume 89.5 fl (80-100); Mean Platelet Volume 11.4 fl (7.4-10.4); Monocytes Absolute Auto 0.7 K/mm3 (0.1-0.6); Monocytes Percent Auto 2.5 % (2.6-8.5); Neutrophils Absolute Auto 5.7 K/mm3 (1.3-6.7); Neutrophils Percent Auto 18.8 % (45.5-73.1); Platelet Count Result 229 k/mm3 (150-375); Red Blood Count 3.89 M/mm3 (4.2-5.4); Red Cell Distribution Width 14.9 % (11.5-14.5); White Blood Count 30.1 K/mm3 (4.5-10.0)
[2022-11-21 09:44] LABS: Alanine Aminotransferase 30 U/L (6-35); Albumin Level 3.5 g/dL (3.5-5.1); Alkaline Phosphatase 98 U/L (38-126); Anion Gap 6 mmol/L (8-16); Aspartate Amino Transferase 31 U/L (14-36); Bilirubin,Total 0.6 mg/dL (0.2-1.3); Blood Urea Nitrogen 12 mg/dL (7-17); Calcium 8.6 mg/dL (8.4-10.2); Carbon Dioxide 23 mmol/L (22-30); Chloride 105 mmol/L (98-107); Estimated CRCL calculation 49 ml/min; Estimated Glomerular Filt Rate 55; Glucose 139 mg/dL (65-110); Magnesium 1.8 mg/dL (1.6-2.3); Potassium 4.3 mmol/L (3.4-5.0); Sodium 134 mmol/L (137-145)
[2022-11-21] MEDS: LORATADINE/PSEUDOEPHEDRINE (*CRX) 10/240 MG TABLET ER 24 HR 1 TAB PO (10:44)
[2022-11-21 11:21] LABS: Platelet Estimate Adequate (Adequate); Schistocytes None Seen (NORMAL); Smudge Cells MANY
[2022-11-21 12:14] LABS: Glucose Point of Care 188 mg/dl (65-105)
[2022-11-21] MEDS: levoFLOXacin 750 MG TABLET PO (12:18)
[2022-11-21 13:47] LABS: Glucose Point of Care 77 mg/dl (65-105)
[2022-11-21 14:00] VITALS: BP 117/62; PULSE 66; RESP 18; TEMP 36.5; O2SAT 99
[2022-11-21 15:07] LABS: Glucose Point of Care 143 mg/dl (65-105)
[2022-11-21 17:17] LABS: Glucose Point of Care 125 mg/dl (65-105)
[2022-11-21 20:40] VITALS: BP 120/64; PULSE 66; RESP 20; TEMP 37.1; O2SAT 98
[2022-11-21 21:27] LABS: Glucose Point of Care 161 mg/dl (65-105)
[2022-11-22 05:16] VITALS: BP 109/56; PULSE 62; RESP 20; TEMP 36.8; O2SAT 100
[2022-11-22 05:44] LABS: Hematocrit 33.5 % (37.0-47.0); Hemoglobin 10.8 g/dL (12.0-15.0); Mean Corpuscular HGB Conc 32.2 g/dl (32-36); Mean Corpuscular Hemoglobin 28.3 pg (26-34); Mean Corpuscular Volume 87.7 fl (80-100); Platelet Count Result 201 k/mm3 (150-375); Red Blood Count 3.82 M/mm3 (4.2-5.4); Red Cell Distribution Width 14.8 % (11.5-14.5); White Blood Count 25.4 K/mm3 (4.5-10.0)
[2022-11-22 06:00] LABS: Alanine Aminotransferase 28 U/L (6-35); Albumin Level 3.3 g/dL (3.5-5.1); Alkaline Phosphatase 84 U/L (38-126); Anion Gap 4 mmol/L (8-16); Aspartate Amino Transferase 29 U/L (14-36); Bilirubin,Total 0.4 mg/dL (0.2-1.3); Blood Urea Nitrogen 12 mg/dL (7-17); Calcium 8.4 mg/dL (8.4-10.2); Carbon Dioxide 25 mmol/L (22-30); Chloride 106 mmol/L (98-107); Estimated CRCL calculation 54 ml/min; Estimated Glomerular Filt Rate > 60; Glucose 97 mg/dL (65-110); Magnesium 1.9 mg/dL (1.6-2.3); Potassium 4.4 mmol/L (3.4-5.0); Sodium 135 mmol/L (137-145)
[2022-11-22 06:13] LABS: Atypical Lymphocytes Present; Lymphocytes Absolute Manual 16.76 K/mm3 (1.1-4.5); Monocytes Percent Manual 2 % (3-9); Neutrophils Percent Manual 32 % (46-73); Platelet Estimate Adequate (Adequate); Smudge Cells MANY; Total Cells Counted 100
[2022-11-22] MEDS: LEVOTHYROXINE SODIUM 150 MCG TABLET PO (06:41)
[2022-11-22 07:31] LABS: Schistocytes None Seen (NORMAL)
[2022-11-22] MEDS: FLUoxetine HCL 20 MG CAPSULE 80 MG PO (08:30)
[2022-11-22] MEDS: lamoTRIgine 50 MG TABLET 150 MG PO (08:30)
[2022-11-22] MEDS: CHOLECALCIFEROL 1,000 UNITS TABLET 1000 UNITS PO (08:31)
[2022-11-22] MEDS: IRBESARTAN 150 MG TABLET 300 MG PO (08:31)
[2022-11-22] MEDS: levoFLOXacin 750 MG TABLET PO (08:31)
[2022-11-22] MEDS: ATORVASTATIN 40 MG TABLET PO (08:32)
[2022-11-22] MEDS: PANTOPRAZOLE 40 MG TABLET PO (08:32)
[2022-11-22 08:37] VITALS: BP 119/80; PULSE 70; RESP 14; O2SAT 99
[2022-11-22] MEDS: LORATADINE/PSEUDOEPHEDRINE (*CRX) 10/240 MG TABLET ER 24 HR 1 TAB PO (08:38)
[2022-11-22] MEDS: amLODIPine BESYLATE 2.5 MG TABLET PO (08:38)
--- NOTE | 2022-11-22 08:45 | PM.DS ---
DS: Admitting Diagnosis Discharge Date 11/22/22 0845 Admitting Diagnosis COPD exacerbation DS: Discharge Diagnosis Discharge Diagnosis (1) COPD exacerbation: Code(s): J44.1 - Chronic obstructive pulmonary disease with (acute) exacerbation Status: Acute Assessment and Plan: CTA does not indicate any PE, nor any acute abnormalities Endorses increased shortness of breath, cough with sputum changes, and wheezes Appears to be an acute exacerbation of COPD at this time Schedule breathing treatments Change to IV Levaquin, since she failed outpatient treatments Supportive care Systemic steroids, changed to PO prednisone 40mg PO daily Add Claritin D for congestion relief Add Mucinex for the cough (2) Type 1 diabetes mellitus without complication, 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: Code(s): E10.9 - Type 1 diabetes mellitus without complications; Z96.41 - Presence of insulin pump (external) (internal) Status: Acute Assessment and Plan: Glucose is 97 Patient has been having hypoglycemic episodes due to poor diet in the last 2 weeks after having diverticulitis and COPD exacerbation Hypoglycemic protocol Hold home insulin Continue to trend glucose Accu-Cheks AC/HS (3) GERD (gastroesophageal reflux disease): Code(s): K21.9 - Gastro-esophageal reflux disease without esophagitis Status: Acute Assessment and Plan: PPI (4) Coarse tremors: Code(s): G25.2 - Other specified forms of tremor Status: Acute Assessment and Plan: could be a combination of hypoglycemia along with LABA and LAMA use as well as oral steroid Continue to monitor Resolved at this time (5) Leukocytosis: Code(s): D72.829 - Elevated white blood cell count, unspecified Status: Acute Assessment and Plan: WBC 82625 upon presentation Currently 25.4 Most likely a combination of steroids and CLL Baseline WBC appears to be 18 Continue to trend (6) CLL (chronic lymphocytic leukemia): Code(s): C91.10 - Chronic lymphocytic leukemia of B-cell type not having achieved remission Status: Acute Assessment and Plan: Follow-up in outpatient setting (7) Anxiety: Code(s): F41.9 - Anxiety disorder, unspecified Status: Acute Assessment and Plan: Continue home meds DS: Summary Hospital Course Hospital Course: Patient is a 66-year-old female with a past medical history of CLL, diabetes mellitus type 2, COPD emphysema, hypertension, anxiety, hypothyroidism who presented to the ED with complaints generalized weakness, tremors, shortness of breath, wheezes. Patient had recently completed a course of azithromycin and steroids. She presented to the ED after this did not work. WBC upon arrival was 35,000. Patient does have CLL [place] [address]. Currently white count is down to 25.4. CTA was performed and did not indicate any PE or acute abnormalities. Patient has been placed on IV Levaquin for further management and care. Systemic steroids have also been given as well. Patient did present with tremors however they have resolved at this time. Glucose has been managed appropriately and is currently 97 at this time. No acute events of hypoglycemia noted through stay. Patient has been walking the halls and is denying any current dyspnea upon exertion or shortness of breath. Patient is stable for discharge at this time for labs and vital signs. Patient is ready for discharge in is asking to be discharged at this time as well. Status at Discharge Functional status at discharge: independent ambulation Overall status at discharge: patient is progressing back to baseline Time Spent with Patient Time attestation: Total time spent providing and/or coordinating discharge services: 53 minutes Time s
--- NOTE | 2022-11-22 08:45 | P.DS_ITS ---
DS: Admitting Diagnosis Discharge Date 11/22/22 0845 Admitting Diagnosis COPD exacerbation DS: Discharge Diagnosis Discharge Diagnosis (1) COPD exacerbation: Code(s): J44.1 - Chronic obstructive pulmonary disease with (acute) exacerbation Status: Acute Assessment and Plan: * CTA does not indicate any PE, nor any acute abnormalities * Endorses increased shortness of breath, cough with sputum changes, and wheezes * Appears to be an acute exacerbation of COPD at this time * Schedule breathing treatments * Change to IV Levaquin, since she failed outpatient treatments * Supportive care * Systemic steroids, changed to PO prednisone 40mg PO daily * Add Claritin D for congestion relief * Add Mucinex for the cough (2) Type 1 diabetes mellitus without complication, with [facility] current use of insulin pump: Code(s): E10.9 - Type 1 diabetes mellitus without complications; Z96.41 - Presence of insulin pump (external) (internal) Status: Acute Assessment and Plan: * Glucose is 97 * Patient has been having hypoglycemic episodes due to poor diet in the last 2 weeks after having diverticulitis and COPD exacerbation * Hypoglycemic protocol * Hold home insulin * Continue to trend glucose * Accu-Cheks AC/HS (3) GERD (gastroesophageal reflux disease): Code(s): K21.9 - Gastro-esophageal reflux disease without esophagitis Status: Acute Assessment and Plan: * PPI (4) Coarse tremors: Code(s): G25.2 - Other specified forms of tremor Status: Acute Assessment and Plan: * could be a combination of hypoglycemia along with LABA and LAMA use as well as oral steroid * Continue to monitor * Resolved at this time (5) Leukocytosis: Code(s): D72.829 - Elevated white blood cell count, unspecified Status: Acute Assessment and Plan: * WBC 12302 upon presentation * Currently 25.4 * Most likely a combination of steroids and CLL * Baseline WBC appears to be 18 * Continue to trend (6) CLL (chronic lymphocytic leukemia): Code(s): C91.10 - Chronic lymphocytic leukemia of B-cell type not having achieved remission Status: Acute Assessment and Plan: * Follow-up in outpatient setting (7) Anxiety: Code(s): F41.9 - Anxiety disorder, unspecified Status: Acute Assessment and Plan: * Continue home meds DS: Summary Hospital Course Hospital Course: Patient is a 66-year-old female with a past medical history of CLL, diabetes mellitus type 2, COPD emphysema, hypertension, anxiety, hypothyroidism who presented to the ED with complaints generalized weakness, tremors, shortness of breath, wheezes. Patient had recently completed a course of azithromycin and steroids. She presented to the ED after this did not work. WBC upon arrival was 35,000. Patient does have C[place] [address]. Currently white count is down to 25.4. CTA was performed and did not indicate any PE or acute abnormalities. Patient has been placed on IV Levaquin for further management and care. Systemic steroids have also been given as well. Patient did present with tremors however they have resolved at this time. Glucose has been managed appropriately and is currently 97 at this time. No
[2022-11-22 08:47] LABS: Glucose Point of Care 187 mg/dl (65-105)
== END 2022-11-22 10:45 | disposition home or self-care (01) ==
LOC: ANHED 18:47 → ANH2MED 11-21 00:21
PROVIDERS: Emergency Medicine; Nurse Practitioner; Admitting Provider Internal Medicine; Emergency Provider Emergency Medicine; PCP Family Medicine; Visit Provider Chiropractor
DX: J44.1 Chronic obstructive pulmonary disease with (acute) exacerbation (principal); E10.9 Type 1 diabetes mellitus without complications; Z96.41 Presence of insulin pump (external) (internal); K21.9 Gastro-esophageal reflux disease without esophagitis; G25.2 Other specified forms of tremor; C91.10 Chronic lymphocytic leukemia of B-cell type not having achieved remission; F41.9 Anxiety disorder, unspecified; I10 Essential (primary) hypertension; Z20.822 Contact with and (suspected) exposure to COVID-19; N28.9 Disorder of kidney and ureter, unspecified; R94.31 Abnormal electrocardiogram [ECG] [EKG]; R06.02 Shortness of breath; R53.1 Weakness; F10.90 Alcohol use, unspecified, uncomplicated; Z87.891 Personal history of nicotine dependence; Z79.4 Long term (current) use of insulin; Z79.899 Other long term (current) drug therapy; Z83.3 Family history of diabetes mellitus
CPT/HCPCS: 36415; 71046; 71275; 80053; 81001; 82010; 82803; 82948; 83605; 83735; 83880; 84443; 84484; 85025; 85610; 85730; 87040; 87636; 93005; 96361; 96374; 96376; 99285; A9270; G0378; J2060; J7120; Q9967

== ENCOUNTER 2022-12-19 09:39 | Emergency (ER) | payer MEDICARE, SELFPAY ==
--- NOTE | ~2022-12-19 | CT_ITS ---
EXAMINATION: CT abdomen pelvis w con DATE: 12/19/2022 12:06 INDICATION: Nausea, vomiting, diarrhea. Rule out obstruction. TECHNIQUE: Computed tomography (CT) of the abdomen and pelvis was performed with 100 CC Omnipaque 350 intravenous contrast. Automated exposure control and iterative reconstruction technique were employe d. Exam dose: 801.04 mGy-cm total exam DLP. COMPARISON: 05/15/2016 CT abdomen pelvis FINDINGS: The lung bases are clear of infiltrate or consolidation. Normal heart size. No pericardial or pleural effusion. The liver, gallbladder, bile duct are unremarkable except for possible focal fatty infiltration of th e liver adjacent to the gallbladder. No pericholecystic fluid or fat stranding. There is pancreatic atrophy. No pancreatic mass lesion, calcification or ductal dilatation is identif ied. Normal splenic size. Hypoplastic adrenal glands. No suspicious renal mass lesion. No urinary tract calculus or hydroureteronephrosis. The urinary blad rajwinder is distended but appears unremarkable, without wall thickening. Retroverted uterus. Approximately 12 x 21 mm calcification in the right adnexal area. There is atherosclerotic calcification but normal caliber of the abdominal aorta. No intraperitoneal or retroperitoneal or pelvic mass lesion or adenopathy or ascites. There are numerous diverticula of the left and right colon. No CT evidence of diverticulitis. No tyler l obstruction, bowel wall thickening, pneumatosis or intraperitoneal free air. Small fat-containing umbilical hernia. Severe degenerative disc disease at L1-2. Degenerative change at the apophyseal joints of the lumbar and lumbosacral area. Osteopenia. No suspicious osteolytic or osteoblastic lesions are noted. IMPRESSION: Normal appendix. Diverticulosis of left and right colon; no CT evidence of diverticulitis is noted No bowel obstruction or intraperitoneal free air. Reviewed, dictated and finalized at [facility]. Reviewed, dictated and finalized at [facility]. IMPRESSION: Normal appendix. Diverticulosis of left and right colon; no CT evidence of diverticulitis is not ed No bowel obstruction or intraperitoneal free air.
[2022-12-19 09:39] VITALS: BP 124/87; PULSE 70; RESP 16; TEMP 36.4; O2SAT 100
[2022-12-19 10:35] VITALS: PULSE 62; RESP 18; O2SAT 100
[2022-12-19 10:52] LABS: Basophils Absolute Auto 0.1 K/mm3 (0.0-0.1); Basophils Percent Auto 0.3 % (0.2-1.2); Eosinophils Absolute Auto 0.2 K/mm3 (0-0.3); Eosinophils Percent Auto 0.8 % (0-4.4); Hematocrit 35.8 % (37.0-47.0); Hemoglobin 11.5 g/dL (12.0-15.0); Immature Granulocyte Percent A 0.4 % (0-0.5); Lymphocytes Percent Auto 77.8 % (18.3-44.2); Mean Corpuscular HGB Conc 32.1 g/dl (32-36); Mean Corpuscular Hemoglobin 28.7 pg (26-34); Mean Corpuscular Volume 89.3 fl (80-100); Mean Platelet Volume 11.5 fl (7.4-10.4); Monocytes Absolute Auto 0.8 K/mm3 (0.1-0.6); Monocytes Percent Auto 3.3 % (2.6-8.5); Neutrophils Absolute Auto 4.1 K/mm3 (1.3-6.7); Neutrophils Percent Auto 17.4 % (45.5-73.1); Platelet Count Result 192 k/mm3 (150-375); Red Blood Count 4.01 M/mm3 (4.2-5.4); Red Cell Distribution Width 14.9 % (11.5-14.5); White Blood Count 23.5 K/mm3 (4.5-10.0)
[2022-12-19 10:58] VITALS: BP 119/63; PULSE 60; RESP 18; O2SAT 100
[2022-12-19 11:06] LABS: Alanine Aminotransferase 39 U/L (6-35); Albumin Level 4.4 g/dL (3.5-5.1); Alkaline Phosphatase 105 U/L (38-126); Anion Gap 6 mmol/L (8-16); Aspartate Amino Transferase 40 U/L (14-36); Bilirubin,Total 0.9 mg/dL (0.2-1.3); Blood Urea Nitrogen 15 mg/dL (7-17); Calcium 9.4 mg/dL (8.4-10.2); Carbon Dioxide 25 mmol/L (22-30); Chloride 98 mmol/L (98-107); Estimated CRCL calculation 47 ml/min; Estimated Glomerular Filt Rate 55; Glucose 147 mg/dL (65-110); Lipase 30 U/L (23-300); Potassium 5.3 mmol/L (3.4-5.0); Sodium 129 mmol/L (137-145)
[2022-12-19 11:09] LABS: Atypical Lymphocytes Present; Platelet Estimate Adequate (Adequate); Schistocytes None Seen (NORMAL); Smudge Cells PRESENT
--- NOTE | 2022-12-19 11:28 | ED.ABDPAIN ---
HPI - Abdominal Pain General Chief Complaint: Abdominal Pain Stated Complaint: abd pain - history of diverticulitis Time Seen by Provider: 12/19/22 10:49 Source: patient Mode of arrival: ambulatory Limitations: no limitations History of Present Illness HPI narrative: This is a 67-year-old female with PMH of diverticulitis, CLL, COPD, type I DM who presents to the ED with chief complaint of left lower quadrant pain beginning 2 days ago. She reports nausea/vomiting/diarrhea for the past couple days as well. States she was able to eat a little bit of soup but is having trouble keeping other foods down. Has been able to drink water. Reports pain at a 3 out of 10 right now. States the pain stays in the left lower quadrant and will worsen throughout the day but usually goes away when she goes to sleep. Denies fevers, chills, chest pain, shortness of breath. Denies bloody stools or hematemesis. Related Data Home Medications Medication Instructions Recorded Confirmed alpha lipoic acid 50 mg capsule 50 mg PO DAILY 07/08/22 11/21/22 amlodipine 2.5 mg tablet 2.5 mg PO DAILY 07/08/22 11/21/22 cholecalciferol (vitamin D3) 25 25 mcg PO DAILY 09/21/22 11/21/22 mcg (1,000 unit) capsule insulin lispro 100 unit/mL 1 sliding scale dose subcut 11/05/22 11/21/22 subcutaneous solution (Humalog USEASDIRECTD U-100 Insulin) omnipod insulin delivery system 11/05/22 11/21/22 fluoxetine 40 mg capsule 80 mg PO DAILY 11/21/22 11/21/22 Allergies Allergy/AdvReac Type Severity Reaction Status Date / Time No Known Allergies Allergy Verified 11/05/22 13:33 Review of Systems Review of Systems: CONSTITUTIONAL: Denies fever, chills, or sweats. EYES: Denies visual changes, redness, or discharge. ENT: Denies rhinorrhea, congestion, sore throat, or otalgia. CARDIOVASCULAR: Denies chest pain, palpitations, or edema. RESPIRATORY: Denies cough or dyspnea. GASTROINTESTINAL: Endorses abdominal pain, nausea, vomiting, and diarrhea. Denies bloody stools or hematemesis. GENITOURINARY: Denies dysuria or hematuria. SKIN: Denies rash or itching. MUSCULOSKELETAL: Denies back pain, joint pain, or myalgia. NEUROLOGIC: Denies headache, numbness, dizziness, or weakness. PSYCHIATRIC: Denies anxiety or depression. [facility] Past Medical History Medical History Anxiety Asthma Bronchitis Cancer Frequent loose stools GERD (gastroesophageal reflux disease) HTN (hypertension) Kidney disease Trigger finger Surgical History Surgical History History of carpal tunnel release Family History Family History Mother Patient's mother is , Onset Age: 69 Family history of malignant neoplasm of ovary Father Patient's father is Diabetes mellitus, Onset Age: 64 Sibling Cerebrovascular accident, Onset Age: 23 Other Depression Family history of hearing loss Social History Social History Social History: Caffeine-Coffee, Tea, soda Smoking packs per day: 1 Smoking cigarettes per day: 20.0 Years smoked: 5 Smoking pack-years: 5.00 Smoking status: Former smoker Tobacco type: cigarettes Smoking end date: 09/13/97 Alcohol intake: current Drinks per week: 6 Alcohol use details: Wine-on weekends Substance use: never Substance use type: does not use Lack of Transportation: No Lack of Food: Never True Current Housing: I Have Housing Concerned About Future Housing: No Difficulty Paying Gas/Electric Bills: No Difficulty Paying for Meds: No Currently Unemployed: No Education: High School Diploma/GED Difficulty w/ Childcare or Family Care: No Spiritual care concerns: No Exam Narrative: GENERAL: Well-appearing, well-nourished, and in no acute distress. HEAD:
[2022-12-19] MEDS: SODIUM CHLORIDE 0.9% IV 1,000 ML 999 ML IV CONT (11:36)
[2022-12-19] MEDS: ONDANSETRON INJ 4 MG/2 ML VIAL IV PUSH (11:36)
[2022-12-19 11:40] LABS: Appearance Urine Clear (Clear); Bacteria Urine None Seen /hpf; Bilirubin Urine Negative (Negative); Blood Urine Negative (Negative); Color Urine Yellow (Yellow); Glucose Urine UA Negative (Negative); Ketones Urine Negative (Negative); Leukocyte Esterase Ur 2+ LEU/UL (Negative); Need Manual Microscopic Reviewed; Nitrate Urine Negative (Negative); Non Pathogenic Casts 0-2; Protein Urine Negative (Negative); RBC Urine 0-2 /hpf (0-2); Specific Grav Ur 1.008 (1.001-1.035); Squamous Epithelial Cell Urine Moderate /hpf (Few); Urobilinogen Urine 0.2 mg/dL (<2.0)
[2022-12-19 11:42] LABS: Add Urine Microscopic? YES
[2022-12-19 11:45] VITALS: PULSE 60; RESP 18; O2SAT 100
[2022-12-19 12:15] VITALS: BP 110/58
[2022-12-19 13:33] VITALS: PULSE 62; RESP 18; O2SAT 100
== END 2022-12-19 13:37 | disposition home or self-care (01) ==
PROVIDERS: Emergency Medicine; Emergency Provider Physician Assistant; PCP Family Medicine
DX: N39.0 Urinary tract infection, site not specified (principal); K52.9 Noninfective gastroenteritis and colitis, unspecified; J44.9 Chronic obstructive pulmonary disease, unspecified; C91.10 Chronic lymphocytic leukemia of B-cell type not having achieved remission; E10.9 Type 1 diabetes mellitus without complications; I10 Essential (primary) hypertension; N28.9 Disorder of kidney and ureter, unspecified; K21.9 Gastro-esophageal reflux disease without esophagitis; F41.9 Anxiety disorder, unspecified; Z96.41 Presence of insulin pump (external) (internal); Z79.4 Long term (current) use of insulin; Z87.891 Personal history of nicotine dependence; K57.90 Diverticulosis of intestine, part unspecified, without perforation or abscess without bleeding
CPT/HCPCS: 36415; 74177; 80053; 81001; 83690; 85025; 87086; 87088; 96361; 96374; 99284; J2405; J7030; Q9967

== ENCOUNTER → 2023-01-28 13:14 | Outpatient (CLI) | payer MEDICARE, SELFPAY ==
--- NOTE | ~2023-01-28 | MM_ITS ---
EXAMINATION: MM screening [facility] BI w mitch HISTORY: Screening mammogram TECHNIQUE: Craniocaudal and mediolateral oblique 3-D tomosynthesis images were obtained and synthetic 2-D images were generated. CAD analysis was submitted and interpreted. COMPARISON: 07/26/2018, 07/06/2017, 06/30/2017 BREAST PARENCHYMAL COMPOSITION: There are scattered areas of fibroglandular density. FINDINGS: No suspicious mass, calcification, or architectural distortion are identified in either romain ast to suggest malignancy. There has been no suspicious interval change. IMPRESSION: 1. No mammographic evidence of malignancy. 2. Recommend routine screening mammography in one year. BI-RADS Category 1: Negative Reviewed, dictated and finalized at location [facility].
== END ==
PROVIDERS: PCP Family Medicine; Visit Provider Family Medicine
DX: Z12.31 Encounter for screening mammogram for malignant neoplasm of breast (principal)
CPT/HCPCS: 77063; 77067

== ENCOUNTER 2023-04-02 08:19 | Outpatient (CLI) | payer MEDICARE, SELFPAY ==
[2023-04-02 19:21] LABS: Thyroid Stimulating Hormone 0.228 uIU/mL (0.465-4.680)
[2023-04-02 20:20] LABS: Free T4 Free Thyroxine 1.55 ng/mL (0.78-2.19)
== END 2023-04-02 08:20 | disposition home or self-care (01) ==
LOC: ANHGOSHLAB 08:21
PROVIDERS: PCP Family Medicine; Visit Provider Internal Medicine Endocrinology, Diabetes & Metabolism
DX: E03.9 Hypothyroidism, unspecified (principal); E10.9 Type 1 diabetes mellitus without complications; Z96.41 Presence of insulin pump (external) (internal)
CPT/HCPCS: 36415; 84439; 84443

== ENCOUNTER 2023-04-05 07:05 | Outpatient (CLI) | payer MEDICARE, SELFPAY ==
[2023-04-05 07:26] LABS: Basophils Absolute Auto 0.1 K/mm3 (0.0-0.1); Basophils Percent Auto 0.4 % (0.2-1.2); Eosinophils Absolute Auto 0.2 K/mm3 (0-0.3); Eosinophils Percent Auto 0.9 % (0-4.4); Hematocrit 36.3 % (37.0-47.0); Hemoglobin 11.7 g/dL (12.0-15.0); Immature Granulocyte Absolute 0.13 K/mm3 (0.00-0.031); Immature Granulocyte Percent A 0.5 % (0-0.5); Lymphocytes Absolute Auto 20.32 K/mm3 (0.9-3.2); Lymphocytes Percent Auto 77.7 % (18.3-44.2); Mean Corpuscular HGB Conc 32.2 g/dl (32-36); Mean Corpuscular Hemoglobin 29.4 pg (26-34); Mean Corpuscular Volume 91.2 fl (80-100); Mean Platelet Volume 10.8 fl (7.4-10.4); Monocytes Absolute Auto 0.7 K/mm3 (0.1-0.6); Monocytes Percent Auto 2.5 % (2.6-8.5); Neutrophils Absolute Auto 4.7 K/mm3 (1.3-6.7); Platelet Count Result 202 k/mm3 (150-375); Red Blood Count 3.98 M/mm3 (4.2-5.4); Red Cell Distribution Width 13.7 % (11.5-14.5); White Blood Count 26.1 K/mm3 (4.5-10.0)
[2023-04-05 07:35] LABS: Hemoglobin A1C 6.8 % (<5.7)
[2023-04-05 07:38] LABS: Alanine Aminotransferase 32 U/L (6-35); Albumin Level 4.1 g/dL (3.5-5.1); Alkaline Phosphatase 91 U/L (38-126); Anion Gap 10 mmol/L (8-16); Aspartate Amino Transferase 30 U/L (14-36); Bilirubin,Total 0.4 mg/dL (0.2-1.3); Blood Urea Nitrogen 20 mg/dL (7-17); Calcium 9.4 mg/dL (8.4-10.2); Carbon Dioxide 23 mmol/L (22-30); Chloride 98 mmol/L (98-107); Cholesterol 209 mg/dL (0-200); Estimated Glomerular Filt Rate 49; Glucose 133 mg/dL (65-110); HDL Direct 69 mg/dL; Potassium 5.2 mmol/L (3.4-5.0); Sodium 131 mmol/L (137-145); Triglycerides 211 mg/dL (<150)
[2023-04-05 07:49] LABS: LDL Cholesterol Direct 76 mg/dL
[2023-04-05 07:57] LABS: Vitamin D 25 Hydroxy 39.4 ng/mL
[2023-04-05 08:07] LABS: Thyroid Stimulating Hormone 0.271 uIU/mL (0.465-4.680)
[2023-04-05 09:31] LABS: Platelet Estimate Adequate (Adequate); Schistocytes None Seen (NORMAL); Smudge Cells FEW
== END 2023-04-05 07:06 | disposition home or self-care (01) ==
LOC: ANHLAB 07:08
PROVIDERS: PCP Family Medicine; Visit Provider Physician Assistant
DX: C91.10 Chronic lymphocytic leukemia of B-cell type not having achieved remission (principal); E03.9 Hypothyroidism, unspecified; E10.8 Type 1 diabetes mellitus with unspecified complications; E55.9 Vitamin D deficiency, unspecified; E78.5 Hyperlipidemia, unspecified; I10 Essential (primary) hypertension; K21.9 Gastro-esophageal reflux disease without esophagitis; Z79.899 Other long term (current) drug therapy; Z96.41 Presence of insulin pump (external) (internal)
CPT/HCPCS: 36415; 80053; 80061; 82306; 83036; 84439; 84443; 85025

== ENCOUNTER 2023-05-27 10:49 | Outpatient (CLI) | payer MEDICARE, SELFPAY ==
[2023-05-27 11:15] LABS: Basophils Absolute Auto 0.1 K/mm3 (0.0-0.1); Basophils Percent Auto 0.4 % (0.2-1.2); Eosinophils Absolute Auto 0.3 K/mm3 (0-0.3); Eosinophils Percent Auto 1.5 % (0-4.4); Hemoglobin 11.2 g/dL (12.0-15.0); Immature Granulocyte Absolute 0.16 K/mm3 (0.00-0.031); Immature Granulocyte Percent A 0.8 % (0-0.5); Lymphocytes Absolute Auto 13.72 K/mm3 (0.9-3.2); Lymphocytes Percent Auto 72.7 % (18.3-44.2); Mean Corpuscular HGB Conc 31.1 g/dl (32-36); Mean Corpuscular Hemoglobin 29.1 pg (26-34); Mean Corpuscular Volume 93.5 fl (80-100); Mean Platelet Volume 11.1 fl (7.4-10.4); Monocytes Absolute Auto 0.6 K/mm3 (0.1-0.6); Neutrophils Absolute Auto 4.1 K/mm3 (1.3-6.7); Neutrophils Percent Auto 21.6 % (45.5-73.1); Platelet Count Result 179 k/mm3 (150-375); Red Blood Count 3.85 M/mm3 (4.2-5.4); Red Cell Distribution Width 14.4 % (11.5-14.5); White Blood Count 18.9 K/mm3 (4.5-10.0)
[2023-05-27 11:27] LABS: Alanine Aminotransferase 33 U/L (6-35); Albumin Level 4.1 g/dL (3.5-5.1); Alkaline Phosphatase 99 U/L (38-126); Anion Gap 8 mmol/L (8-16); Aspartate Amino Transferase 35 U/L (14-36); Bilirubin,Total 0.4 mg/dL (0.2-1.3); Blood Urea Nitrogen 18 mg/dL (7-17); Calcium 9.3 mg/dL (8.4-10.2); Carbon Dioxide 24 mmol/L (22-30); Chloride 100 mmol/L (98-107); Estimated Glomerular Filt Rate 49; Glucose 182 mg/dL (65-110); Lactate Dehydrogenase 194 U/L (120-246); Potassium 4.6 mmol/L (3.4-5.0); Sodium 132 mmol/L (137-145)
[2023-05-27 11:34] LABS: Immunoglobulin A 50 mg/dL (70-400); Immunoglobulin G 443 mg/dL (700-1600); Immunoglobulin M 37 mg/dL (40-230)
== END 2023-05-27 10:50 | disposition home or self-care (01) ==
PROVIDERS: PCP Family Medicine; Visit Provider Internal Medicine Hematology & Oncology
DX: C91.10 Chronic lymphocytic leukemia of B-cell type not having achieved remission (principal)
CPT/HCPCS: 36415; 80053; 82784; 83615; 85025

== ENCOUNTER → 2023-09-10 10:41 | Outpatient (CLI) | payer MEDICARE, SELFPAY ==
--- NOTE | ~2023-09-10 | CT_ITS ---
EXAMINATION: CT abdomen pelvis wo con DATE: 09/10/2023 11:10 INDICATION: Nonobstructive gastroenteritis and colitis, left lower quadrant pain TECHNIQUE: Computed tomography (CT) of the abdomen and pelvis was performed without intravenous contr ast. The dose-length product (DLP) was 889.02 mGy-cm. Automated exposure control and iterative recons truction technique were employed. COMPARISON: 12/19/2022 FINDINGS: Minimal dependent atelectasis is present in the lung bases. The heart size is normal. There is a trace pericardial effusion. The liver, spleen, pancreas, gallbladder, and adrenal glands are no rmal. The kidneys are unremarkable. No pathologically enlarged abdominal or pelvic lymph nodes are id entified. No free intraperitoneal gas or evidence of bowel obstruction. Colonic diverticulosis is pre sent without evidence of diverticulitis. The appendix is normal. There is severe lumbar spondylosis a t L1-2. IMPRESSION: 1. Diverticulosis without evidence of diverticulitis. Reviewed, dictated and finalized at location [facility]. [employer]
== END ==
PROVIDERS: PCP Family Medicine; Visit Provider Family Medicine
DX: K52.9 Noninfective gastroenteritis and colitis, unspecified (principal); K57.90 Diverticulosis of intestine, part unspecified, without perforation or abscess without bleeding
CPT/HCPCS: 74176

== ENCOUNTER 2023-09-14 07:48 | Outpatient (CLI) | payer MEDICARE, SELFPAY ==
[2023-09-14 08:54] LABS: Free T4 Free Thyroxine 0.93 ng/mL (0.78-2.19)
== END 2023-09-14 07:49 | disposition home or self-care (01) ==
LOC: ANHLAB 07:50
PROVIDERS: PCP Family Medicine; Visit Provider Internal Medicine Endocrinology, Diabetes & Metabolism
DX: E03.9 Hypothyroidism, unspecified (principal)
CPT/HCPCS: 36415; 84439; 84443

== ENCOUNTER 2023-09-23 08:02 | Outpatient (CLI) | payer MEDICARE, SELFPAY ==
[2023-09-23 09:00] LABS: Alanine Aminotransferase 49 U/L (6-35); Alkaline Phosphatase 90 U/L (38-126); Anion Gap 7 mmol/L (8-16); Aspartate Amino Transferase 37 U/L (14-36); Bilirubin,Total 0.5 mg/dL (0.2-1.3); Blood Urea Nitrogen 13 mg/dL (7-17); Calcium 9.2 mg/dL (8.4-10.2); Carbon Dioxide 29 mmol/L (22-30); Chloride 101 mmol/L (98-107); Estimated Glomerular Filt Rate > 60; Glucose 167 mg/dL (65-110); Potassium 4.1 mmol/L (3.4-5.0); Sodium 137 mmol/L (137-145)
[2023-09-23 10:00] LABS: Hemoglobin A1C 6.7 % (<5.7)
== END 2023-09-23 08:03 | disposition home or self-care (01) ==
PROVIDERS: PCP Family Medicine; Visit Provider Family Medicine
DX: E03.9 Hypothyroidism, unspecified (principal); E10.65 Type 1 diabetes mellitus with hyperglycemia; Z79.52 Long term (current) use of systemic steroids
CPT/HCPCS: 36415; 80053; 83036; 84443

== ENCOUNTER 2023-10-20 09:55 | Outpatient (CLI) | payer MEDICARE, SELFPAY ==
[2023-10-20 11:19] LABS: Thyroid Stimulating Hormone 0.256 uIU/mL (0.465-4.680)
[2023-10-25 12:28] LABS: Immunoglobulin A 58 mg/dL (70-320); TTG IGA AB <1.0 U/mL (<15.0); Tissue Transglutaminase IgG Ab <1.0 U/mL (<15.0)
== END 2023-10-20 09:56 | disposition home or self-care (01) ==
LOC: ANHLAB 09:56
PROVIDERS: PCP Family Medicine; Referring Provider Internal Medicine Endocrinology, Diabetes & Metabolism; Visit Provider Nurse Practitioner Family
DX: F41.9 Anxiety disorder, unspecified (principal); E03.9 Hypothyroidism, unspecified; R19.7 Diarrhea, unspecified
CPT/HCPCS: 36415; 82784; 84439; 84443; 86364

== ENCOUNTER 2023-10-21 09:44 | Outpatient (CLI) | payer MEDICARE, SELFPAY ==
[2023-10-29 00:21] LABS: Calprotectin, Stool 232 mcg/g
== END 2023-10-21 09:45 | disposition home or self-care (01) ==
LOC: ANHLAB 09:45
PROVIDERS: PCP Family Medicine; Visit Provider Nurse Practitioner Family
DX: R19.7 Diarrhea, unspecified (principal)
CPT/HCPCS: 83993; 87045; 87177; 87209; 87427; 87449

== ENCOUNTER 2023-12-15 10:41 | Outpatient (CLI) | payer MEDICARE, SELFPAY ==
--- NOTE | ~2023-12-15 | XR_ITS ---
XR cervical spine min 6V DATE: 12/15/2023 11:13 INDICATION: Neck pain TECHNIQUE: Flexion and extension lateral views. AP, open-mouth, lateral and bilateral oblique views COMPARISON: None FINDINGS: C1 and C2 are normally aligned and the odontoid process is intact. No fracture or dislocati on or locked facet or prevertebral soft tissue swelling. There is minimal anterolisthesis at C4-5. There is moderate degenerative disc disease at C3-4. There is severe degenerative disc disease at C5-6 and C6-7. There is associated minimal retrolisthesi s at C5-6. Uncovertebral joint spurring encroaches particularly prominently upon the anterior aspect of the righ t C4, C6 and C7 neural foramina and left C4, C5, C6 and especially C7 neural foramina. No instability on flexion or extension is noted. IMPRESSION: Prominent cervical spondylosis; no fracture or dislocation or locked facet Reviewed, dictated and finalized at location [facility]. IMPRESSION: Prominent cervical spondylosis; no fracture or dislocation or marlen d facet
== END 2023-12-15 10:42 | disposition home or self-care (01) ==
PROVIDERS: PCP Family Medicine; Visit Provider Family Medicine
DX: S13.4XXA Sprain of ligaments of cervical spine, initial encounter (principal); Z79.52 Long term (current) use of systemic steroids; M85.852 Other specified disorders of bone density and structure, left thigh; X58.XXXA Exposure to other specified factors, initial encounter; M47.892 Other spondylosis, cervical region
CPT/HCPCS: 72052

== ENCOUNTER 2024-01-21 09:51 | Outpatient (CLI) | payer MEDICARE, SELFPAY ==
[2024-01-21 10:09] LABS: Hematocrit 36.8 % (37.0-47.0); Hemoglobin 11.8 g/dL (12.0-15.0); Mean Corpuscular HGB Conc 32.1 g/dl (32-36); Mean Corpuscular Volume 90.4 fl (80-100); Mean Platelet Volume 10.5 fl (7.4-10.4); Platelet Count Result 190 k/mm3 (150-375); Red Blood Count 4.07 M/mm3 (4.2-5.4); Red Cell Distribution Width 14.6 % (11.5-14.5); White Blood Count 20.6 K/mm3 (4.5-10.0)
[2024-01-21 10:17] LABS: Eosinophils Percent Manual 1 % (0-4); Monocytes Absolute Manual 0.82 K/mm3 (0.1-0.90); Monocytes Percent Manual 4 % (3-9); Neutrophils Percent Manual 45 % (46-73); Platelet Estimate Adequate (Adequate); Total Cells Counted 100
[2024-01-21 10:18] LABS: Hypochromasia 1+; Schistocytes None Seen
[2024-01-21 13:09] LABS: Alanine Aminotransferase 42 U/L (6-35); Albumin Level 4.2 g/dL (3.5-5.1); Alkaline Phosphatase 103 U/L (38-126); Anion Gap 7 mmol/L (4-12); Aspartate Amino Transferase 29 U/L (14-36); Bilirubin,Total 0.5 mg/dL (0.2-1.3); Blood Urea Nitrogen 19 mg/dL (7-17); Calcium 9.2 mg/dL (8.4-10.2); Carbon Dioxide 24 mmol/L (22-30); Chloride 104 mmol/L (98-107); Estimated Glomerular Filt Rate 55; Glucose 116 mg/dL (65-110); Potassium 4.7 mmol/L (3.4-5.0); Sodium 135 mmol/L (137-145)
[2024-01-21 13:36] LABS: Immunoglobulin A 52 mg/dL (70-400); Immunoglobulin G 449 mg/dL (700-1600); Immunoglobulin M 40 mg/dL (40-230)
== END 2024-01-21 09:52 | disposition home or self-care (01) ==
LOC: ANHLAB 09:53
PROVIDERS: PCP Family Medicine; Visit Provider Internal Medicine Hematology & Oncology
DX: C91.10 Chronic lymphocytic leukemia of B-cell type not having achieved remission (principal)
CPT/HCPCS: 36415; 80053; 82784; 85025

== ENCOUNTER 2024-03-06 13:20 | Outpatient (CLI) | payer MEDICARE, SELFPAY ==
[2024-03-06 19:35] LABS: Free T4 Free Thyroxine 1.66 ng/mL (0.78-2.19)
[2024-03-06 19:44] LABS: Alanine Aminotransferase 49 U/L (6-35); Albumin Level 4.6 g/dL (3.5-5.1); Alkaline Phosphatase 118 U/L (38-126); Anion Gap 11 mmol/L (4-12); Aspartate Amino Transferase 108 U/L (14-36); Bilirubin,Total 0.9 mg/dL (0.2-1.3); Blood Urea Nitrogen 19 mg/dL (7-17); Calcium 9.9 mg/dL (8.4-10.2); Carbon Dioxide 25 mmol/L (22-30); Chloride 99 mmol/L (98-107); Estimated Glomerular Filt Rate 44; Glucose 216 mg/dL (65-110); Potassium 5.6 mmol/L (3.4-5.0); Sodium 135 mmol/L (137-145)
[2024-03-06 19:53] LABS: MALB Creatinine Ratio 14.8 mg/g (0-30); Microalbumin Urine Random 30.3 mg/L (0-16.7)
[2024-03-06 20:01] LABS: Hemoglobin A1C 5.8 % (<5.7)
== END 2024-03-06 13:21 | disposition home or self-care (01) ==
PROVIDERS: Internal Medicine Endocrinology, Diabetes & Metabolism; PCP Family Medicine; Visit Provider Family Medicine
DX: E10.65 Type 1 diabetes mellitus with hyperglycemia (principal); N18.30 Chronic kidney disease, stage 3 unspecified; E03.9 Hypothyroidism, unspecified; F41.9 Anxiety disorder, unspecified
CPT/HCPCS: 36415; 80053; 82043; 83036; 84439; 84443

== ENCOUNTER 2024-04-07 09:36 | Outpatient (CLI) | payer MEDICARE, SELFPAY ==
--- NOTE | ~2024-04-07 | US_ITS ---
EXAMINATION: US renal BI DATE: 04/07/2024 09:50 INDICATION: N18.31 - Chronic kidney disease, stage 3a TECHNIQUE: Multiple grayscale and Doppler ultrasound images of the kidneys were obtained. COMPARISON: CT abdomen pelvis 09/10/2023 FINDINGS: The right kidney measures 9.7 x 4.2 x 4.9 cm. The left kidney measures 10.2 x 3.3 x 5.4 cm. The kidne ys demonstrate normal parenchymal echogenicity. There is no hydronephrosis. The bladder is normal. In cidental note of echogenic liver parenchyma. IMPRESSION: Unremarkable renal sonogram findings. Echogenic liver, most commonly due to steatosis but also can be seen with hepatitis and fibrosis Reviewed, dictated and finalized at location [facility]. IMPRESSION: Unremarkable renal sonogram findings. Echogenic liver, most commonly due to steatosis but also can be seen with hepat itis and fibrosis
== END 2024-04-07 09:37 ==
LOC: GOSHIMG 09:37
PROVIDERS: PCP Family Medicine; Visit Provider Internal Medicine Nephrology
DX: N18.31 Chronic kidney disease, stage 3a (principal)
CPT/HCPCS: 76775

== ENCOUNTER 2024-04-20 08:00 | Outpatient (CLI) | payer MEDICARE, SELFPAY ==
[2024-04-20 12:53] LABS: Hematocrit 36.4 % (37.0-47.0); Hemoglobin 11.5 g/dL (12.0-15.0); Mean Corpuscular HGB Conc 31.6 g/dl (32-36); Mean Corpuscular Hemoglobin 29.3 pg (26-34); Mean Corpuscular Volume 92.9 fl (80-100); Mean Platelet Volume 11.3 fl (7.4-10.4); Platelet Count Result 242 k/mm3 (150-375); Red Blood Count 3.92 M/mm3 (4.2-5.4); Red Cell Distribution Width 14.5 % (11.5-14.5); White Blood Count 21.5 K/mm3 (4.5-10.0)
[2024-04-20 13:14] LABS: Parathyroid Intact 28.1 pg/mL (7.5-53.5)
[2024-04-20 13:44] LABS: Creatinine Urine 98.1 mg/dL; Total Protein Urine Random 6 mg/dL; Ur Ttl Prot Creatinine Ratio 0.06 mg/mg (0-0.20)
[2024-04-20 13:45] LABS: Add Urine Microscopic? YES; Appearance Urine Clear (Clear); Bacteria Urine None Seen /hpf; Bilirubin Urine Negative (Negative); Blood Urine Negative (Negative); Color Urine Yellow (Yellow); Glucose Urine UA Negative (Negative); Ketones Urine Negative (Negative); Leukocyte Esterase Ur 2+ LEU/UL (Negative); Nitrate Urine Negative (Negative); Non Pathogenic Casts 0-2; Protein Urine Negative (Negative); Specific Grav Ur 1.013 (1.001-1.035); Squamous Epithelial Cell Urine None Seen /hpf (Few); Urobilinogen Urine 0.2 mg/dL (<2.0); pH Urine 6.5 (5.0-9.0)
[2024-04-20 13:51] LABS: Erythrocyte Sedimentation Rate 20 mm/hr (0-20)
[2024-04-20 14:10] LABS: Free T4 Free Thyroxine 1.92 ng/mL (0.78-2.19)
[2024-04-20 14:27] LABS: Complement C3 115 mg/dL (88-165)
[2024-04-20 14:28] LABS: Albumin Level 4.1 g/dL (3.5-5.1); Anion Gap 8 mmol/L (4-12); Blood Urea Nitrogen 14 mg/dL (7-17); Calcium 9.2 mg/dL (8.4-10.2); Carbon Dioxide 26 mmol/L (22-30); Chloride 99 mmol/L (98-107); Creatine Kinase 78 U/L (30-135); Estimated Glomerular Filt Rate 55; Glucose 153 mg/dL (65-110); Phosphorus 3.5 mg/dL (2.5-4.5); Potassium 4.2 mmol/L (3.4-5.0); Sodium 133 mmol/L (137-145)
[2024-04-21 15:00] LABS: Thyroid Stimulating Hormone 0.757 uIU/mL (0.465-4.680)
[2024-04-24 13:33] LABS: Kappa\\Lambda Light Chains 1.19 (0.26-1.65); Lambda Light Chain 10.8 mg/L (5.7-26.3)
[2024-04-25 14:48] LABS: Immunofixation, Serum Normal pattern.
== END 2024-04-20 08:01 | disposition home or self-care (01) ==
PROVIDERS: Internal Medicine Endocrinology, Diabetes & Metabolism; PCP Family Medicine; Visit Provider Internal Medicine Nephrology
DX: E66.09 Other obesity due to excess calories (principal); N18.31 Chronic kidney disease, stage 3a; Z68.30 Body mass index [BMI] 30.0-30.9, adult; K85.90 Acute pancreatitis without necrosis or infection, unspecified
CPT/HCPCS: 36415; 80069; 81001; 82150; 82550; 82570; 83690; 83883; 83970; 84156; 84439; 84443; 85027; 85652; 86038; 86039; 86160; 86334

== ENCOUNTER 2024-04-20 09:25 | Outpatient (CLI) | payer MEDICARE, SELFPAY ==
[2024-04-20 13:15] LABS: Amylase 62 U/L (30-110); Lipase 33 U/L (23-300)
== END 2024-04-20 09:26 | disposition home or self-care (01) ==
LOC: ANHGOSHLAB 09:28
PROVIDERS: PCP Family Medicine; Visit Provider Family Medicine
DX: K85.90 Acute pancreatitis without necrosis or infection, unspecified (principal)
CPT/HCPCS: 36415; 82150; 83690

== ENCOUNTER 2024-04-24 12:39 | Outpatient (CLI) | payer MEDICARE, SELFPAY ==
[2024-04-24 15:40] LABS: Creatinine Urine 47.7 mg/dL; Total Protein Urine Random 10 mg/dL; Ur Ttl Prot Creatinine Ratio 0.21 mg/mg (0-0.20)
== END 2024-04-24 12:40 | disposition home or self-care (01) ==
PROVIDERS: PCP Family Medicine; Visit Provider Internal Medicine Nephrology
DX: R10.32 Left lower quadrant pain (principal); R82.81 Pyuria; N18.31 Chronic kidney disease, stage 3a
CPT/HCPCS: 82570; 84156; 87086

== ENCOUNTER 2024-04-26 14:42 | Outpatient (CLI) | payer MEDICARE, SELFPAY | END 2024-04-26 14:43 | disposition home or self-care (01) | PROVIDERS: PCP Family Medicine; Visit Provider Nurse Practitioner Family | DX: R19.7 Diarrhea, unspecified (principal) | CPT/HCPCS: 87045; 87177; 87209; 87427; 87449 ==

== ENCOUNTER 2024-07-15 09:55 | Emergency (ER) | payer MEDICARE, SELFPAY ==
[2024-07-15 10:02] VITALS: BP 131/70; PULSE 81; RESP 14; TEMP 37; O2SAT 99
--- NOTE | 2024-07-15 10:20 | ED.GENADULT ---
HPI - General Adult General Chief complaint: Skin/Abscess/Foreign Body Stated complaint: rash Time Seen by Provider: 07/15/24 10:10 Source: patient Related Data Home Medications Medication Instructions Recorded Confirmed alpha lipoic acid 50 mg capsule 50 mg PO DAILY 07/08/22 05/24/24 cholecalciferol (vitamin D3) 25 25 mcg PO BID 02/02/23 05/24/24 mcg (1,000 unit) tablet Allergies Allergy/AdvReac Type Severity Reaction Status Date / Time semaglutide [From Ozempic] AdvReac Severe Abdominal Verified 07/15/24 10:04 Pain PMFSH Past Medical History Medical History Adrenal insufficiency ([place]'s disease) Anemia, unspecified Anxiety Asthma Bronchitis Cancer Congenital malformations of adrenal gland Diverticulosis of colon (without mention of hemorrhage) Elevated fecal calprotectin Frequent loose stools GERD (gastroesophageal reflux disease) HTN (hypertension) Hypertonicity of bladder Irritable bowel syndrome with diarrhea Kidney disease LLQ abdominal pain Lymphocytosis (symptomatic) Major depressive disorder, single episode, unspecified Mixed hyperlipidemia Otosclerosis, unspecified Trigger finger Unspecified B-cell lymphoma, spleen Unspecified hearing loss, unspecified ear Surgical History Surgical History History of carpal tunnel release Family History Family History Mother Patient's mother is , Onset Age: 69 Family history of malignant neoplasm of ovary Father Patient's father is Diabetes mellitus, Onset Age: 64 Sibling Cerebrovascular accident, Onset Age: 23 Other Depression Family history of hearing loss Social History Social History Social History: Caffeine-Coffee, Tea, soda Smoking packs per day: 1 Smoking cigarettes per day: 20.0 Years smoked: 5 Smoking pack-years: 5.00 Smoking status: Former smoker Tobacco type: cigarettes Smoking end date: 09/13/97 Alcohol intake: current Drinks per week: 6 Alcohol use details: Wine-on weekends Substance use: never Substance use type: does not use Do You Feel Safe in your Home?: Yes Lack of Transportation: No Lack of Food: Never True Current Housing: I Have Housing Concerned About Future Housing: No Difficulty Paying Gas/Electric Bills: No Difficulty Paying for Meds: No Currently Unemployed: No Education: Bachelor's Degree Difficulty w/ Childcare or Family Care: No Living arrangements: with family Gender identity (if verbalized by the patient): Female Spiritual care concerns: No Course Vital Signs Vital signs: Vital Signs Temperature 37.0 C 07/15/24 10:02 Pulse Rate 81 07/15/24 10:02 Respiratory Rate 14 07/15/24 10:02 Blood Pressure 131/70 07/15/24 10:02 Pulse Oximetry 99 07/15/24 10:02 Temperature 37.0 C 07/15/24 10:02 Pulse Rate 81 07/15/24 10:02 Respiratory Rate 14 07/15/24 10:02 Blood Pressure 131/70 07/15/24 10:02 Pulse Oximetry 99 07/15/24 10:02 Medical Decision Making Vital Signs Vital Signs: Vital Signs Temperature 37.0 C 07/15/24 10:02 Pulse Rate 81 07/15/24 10:02 Respiratory Rate 14 07/15/24 10:02 Blood Pressure 131/70 07/15/24 10:02 Pulse Oximetry 99 07/15/24 10:02 Temperature 37.0 C 07/15/24 10:02 Pulse Rate 81 07/15/24 10:02 Respiratory Rate 14 07/15/24 10:02 Blood Pressure 131/70 07/15/24 10:02 Pulse Oximetry 99 07/15/24 10:02 Discharge Plan Discharge Prescriptions: No Action alpha lipoic acid 50 mg capsule 50 mg PO DAILY (DME) Dexcom G6 Sensor Device See Rx Instructions .ROUTE .MEDSUPPLY Qty: 9 3RF Rx Instructions: As directed (DME) Dexcom G6 Transmitter Device See Rx Instructions .ROUTE .MEDSUPPLY Qty: 1 3RF Rx Instructions: As directed Xifaxan 550 mg tablet 550 mg PO TID 14 Days Qty: 42 2RF cholecalciferol (vitamin D3) 25 mcg (1,000 unit) tablet 25 mcg PO BID fluoxetine 40 mg capsule 80 mg PO DAILY Qty: 180 1RF acetaminophen-codeine 300-30 mg tablet 1 tablet PO Q6H Qty: 30 1RF lamotrigine 150 mg tablet 150 mg PO DAILY Qty: 90 3RF sertraline 25 mg tablet 25 mg PO DAILY Qty: 90 3RF irbesartan 300 mg tablet 300 mg PO DAILY Qty: 90 1RF dicyclomine 20 mg tablet 20 mg PO QID PRN (Reason: abdominal pain) Qty: 120 2RF (DME) Contour Next Test Strips Strip See Rx Instructions .Route Qty: 300 1RF Rx Instructions: check three times a day hydrocortisone 20 mg tablet 20 mg PO BID Qty: 180 1RF omeprazole 20 mg capsule,delayed release(DR/EC) 20 mg PO DAILY Qty: 90 1RF alprazolam 1 mg tablet 1 mg PO BID Qty: 180 1RF insulin lispro [Humalog U-100 Insulin] 100 unit/mL solution See Rx Instructions .ROUTE .COMPLEX Qty: 100 2RF Dose Instruction: INJECT SUBCUTANEOUSLY 100 UNITS VIA CONTINUOUS INFUSION DAILY Rx Instructions: INJECT SUBCUTANEOUSLY 100 UNITS VIA CONTINUOUS INFUSION DAILY levothyroxine [Synthroid] 150 mcg tablet See Rx Instructions .ROUTE .COMPLEX Qty: 78 3RF Dose Instruction: TAKE 1 TABLET BY MOUTH DAILY Rx Instructions: TAKE 1 TABLET BY MOUTH 6 days a week atorvastatin 40 mg tablet 40 mg PO DAILY Qty: 90 1RF trazodone 100 mg tablet 100 mg PO QHS PRN (Reason: insomnia) Qty: 90 2RF (DME) Omnipod 5 G6 Pods (Gen 5) Cartridge See Rx Instructions .ROUTE .COMPLEX Qty: 40 0RF Dose Instruction: CHANGE SENSOR EVERY 3 DAYS Rx Instructions: CHANGE SENSOR EVERY 2.5 DAYS (DME) Omnipod 5 G6 Intro Kit (Gen 5) Cartridge See Rx Instructions .ROUTE .COMPLEX Qty: 1 0RF Dose Instruction: DIRECTED Rx Instructions: DIRECTED Follow-up/Referrals: Dario Brice MD [Primary Care Provider] -
== END 2024-07-15 10:31 | disposition left against medical advice (07) ==
PROVIDERS: Emergency Provider Emergency Medicine; PCP Family Medicine
DX: R21 Rash and other nonspecific skin eruption (principal)
CPT/HCPCS: 99199

== ENCOUNTER 2024-07-27 13:41 | Outpatient (CLI) | payer MEDICARE, SELFPAY ==
[2024-07-27 14:34] LABS: Hematocrit 36.6 % (37.0-47.0); Hemoglobin 11.7 g/dL (12.0-15.0); Mean Corpuscular Hemoglobin 29.3 pg (26-34); Mean Corpuscular Volume 91.7 fl (80-100); Mean Platelet Volume 11.3 fl (7.4-10.4); Platelet Count Result 214 k/mm3 (150-375); Red Blood Count 3.99 M/mm3 (4.2-5.4); Red Cell Distribution Width 14.3 % (11.5-14.5); White Blood Count 17.9 K/mm3 (4.5-10.0)
[2024-07-27 14:43] LABS: Albumin Level 4.5 g/dL (3.5-5.1); Anion Gap 10 mmol/L (4-12); Blood Urea Nitrogen 20 mg/dL (7-17); Calcium 9.4 mg/dL (8.4-10.2); Carbon Dioxide 23 mmol/L (22-30); Chloride 99 mmol/L (98-107); Estimated Glomerular Filt Rate 55; Glucose 199 mg/dL (65-110); Phosphorus 3.9 mg/dL (2.5-4.5); Potassium 4.6 mmol/L (3.4-5.0); Sodium 132 mmol/L (137-145)
[2024-07-27 15:55] LABS: Creatinine Urine 41.1 mg/dL; Total Protein Urine Random 9 mg/dL; Ur Ttl Prot Creatinine Ratio 0.22 mg/mg (0-0.20)
== END 2024-07-27 13:42 | disposition home or self-care (01) ==
LOC: ANHLAB 13:43
PROVIDERS: PCP Family Medicine; Visit Provider Internal Medicine Nephrology
DX: I10 Essential (primary) hypertension (principal); E66.09 Other obesity due to excess calories; Z68.30 Body mass index [BMI] 30.0-30.9, adult
CPT/HCPCS: 36415; 80069; 82570; 84156; 85027

== ENCOUNTER 2024-09-11 11:13 | Outpatient (CLI) | payer MEDICARE, SELFPAY ==
[2024-09-11 11:54] LABS: Cholesterol 210 mg/dL (0-200); HDL Direct 58 mg/dL; Triglycerides 314 mg/dL (<150)
[2024-09-11 11:59] LABS: Hemoglobin A1C 6.9 % (<5.7); Vitamin D 25 Hydroxy 32.2 ng/mL
[2024-09-11 12:05] LABS: LDL Cholesterol Direct 75 mg/dL
== END 2024-09-11 11:14 | disposition home or self-care (01) ==
PROVIDERS: PCP Family Medicine; Referring Provider Family Medicine; Visit Provider Internal Medicine Endocrinology, Diabetes & Metabolism
DX: E11.9 Type 2 diabetes mellitus without complications (principal); E78.5 Hyperlipidemia, unspecified; E55.9 Vitamin D deficiency, unspecified
CPT/HCPCS: 36415; 80061; 82306; 83036

== ENCOUNTER 2024-09-26 10:42 | Outpatient (CLI) | payer MEDICARE, SELFPAY ==
[2024-09-26 11:02] LABS: Basophils Absolute Auto 0.1 K/mm3 (0.0-0.1); Basophils Percent Auto 0.3 % (0.2-1.2); Eosinophils Absolute Auto 0.1 K/mm3 (0-0.3); Eosinophils Percent Auto 0.9 % (0-4.4); Hematocrit 34.9 % (37.0-47.0); Hemoglobin 11.1 g/dL (12.0-15.0); Immature Granulocyte Absolute 0.08 K/mm3 (0.00-0.031); Immature Granulocyte Percent A 0.5 % (0-0.5); Lymphocytes Absolute Auto 10.17 K/mm3 (0.9-3.2); Lymphocytes Percent Auto 65.9 % (18.3-44.2); Mean Corpuscular HGB Conc 31.8 g/dl (32-36); Mean Corpuscular Hemoglobin 29.5 pg (26-34); Mean Corpuscular Volume 92.8 fl (80-100); Mean Platelet Volume 10.6 fl (7.4-10.4); Monocytes Absolute Auto 0.4 K/mm3 (0.1-0.6); Monocytes Percent Auto 2.6 % (2.6-8.5); Neutrophils Absolute Auto 4.6 K/mm3 (1.3-6.7); Neutrophils Percent Auto 29.8 % (45.5-73.1); Platelet Count Result 202 k/mm3 (150-375); Red Blood Count 3.76 M/mm3 (4.2-5.4); Red Cell Distribution Width 15.3 % (11.5-14.5); White Blood Count 15.4 K/mm3 (4.5-10.0)
[2024-09-26 11:10] LABS: Platelet Estimate Adequate (Adequate)
[2024-09-26 11:11] LABS: Atypical Lymphocytes Present; Schistocytes None Seen
[2024-09-26 12:53] LABS: Alanine Aminotransferase 80 U/L (6-35); Albumin Level 4.1 g/dL (3.5-5.1); Alkaline Phosphatase 98 U/L (38-126); Anion Gap 10 mmol/L (4-12); Aspartate Amino Transferase 54 U/L (14-36); Bilirubin,Total 0.6 mg/dL (0.2-1.3); Blood Urea Nitrogen 18 mg/dL (7-17); Carbon Dioxide 24 mmol/L (22-30); Chloride 100 mmol/L (98-107); Estimated Glomerular Filt Rate 44; Glucose 277 mg/dL (65-110); Potassium 5.1 mmol/L (3.4-5.0); Sodium 134 mmol/L (137-145)
[2024-09-26 15:11] LABS: Immunoglobulin A 44 mg/dL (70-400); Immunoglobulin G 433 mg/dL (700-1600); Immunoglobulin M 48 mg/dL (40-230)
== END 2024-09-26 10:43 | disposition home or self-care (01) ==
PROVIDERS: PCP Family Medicine; Visit Provider Internal Medicine Hematology & Oncology
DX: C91.10 Chronic lymphocytic leukemia of B-cell type not having achieved remission (principal)
CPT/HCPCS: 36415; 80053; 82784; 85025

== ENCOUNTER 2025-02-19 08:34 | Outpatient (CLI) | payer MEDICARE, SELFPAY ==
--- OUTSIDE RECORDS SUMMARY | 2025-02-19 08:59 | XMS_ITS | Clinical Summary ---
Author Organization [facility] (Formerly [facility]) [place] Address [address] [place] [address] Care Team Providers Care Gasoline Pump Installer Name Role Phone Jessica Brice MD Primary Care Provider [phone] Allergies No known active allergies Medications amLODIPine (NORVASC) 5 mg tablet TAKE 1 TABLET BY MOUTH EVERY DAY DIRECTED 2 Active atorvastatin (LIPITOR) 40 mg tablet TAKE 1 TABLET BY MOUTH EVERY DAY DIRECTED 2 Active FLUoxetine (PROzac) 40 mg capsule TAKE 2 CAPSULES BY MOUTH EVERY DAY 2 Active hyoscyamine 0.125 mg tablet TAKE 1 TABLET BY MOUTH FOUR TIMES DAILY NEEDED FOR INDIGESTION 2 Active HumaLOG U-100 Insulin 100 unit/mL vial INJECT 100 UNITS UNDER THE SKIN EVERY DAY VIA INSULIN PUMP DIRECTED 2 Active Irbesartan (AVAPRO) 300 mg tablet Take 300 mg by mouth daily. 2 Active lamoTRIgine (LaMICtal) 150 mg tablet Take 150 mg by mouth daily. 2 Active levothyroxine 200 mcg tablet Take 200 mcg by mouth daily. 2 Active omeprazole (PriLOSEC) 20 mg Capsule, Delayed Release(E.C.) TAKE 1 CAPSULE BY MOUTH EVERY DAY DIRECTED 2 Active traZODone (DESYREL) 100 mg tablet TAKE 1 TABLET BY MOUTH EVERY DAY AT BEDTIME NEEDED FOR INSOMNIA 2 Active Active Problems No known active problems Encounters Date Type Department Care Team Description 02/06/2025 External Device Data ST[facility] ABSTRACTION Provider, Abstract 02/01/2025 External Device Data ST[facility] ABSTRACTION Provider, Abstract 01/31/2025 External Device Data [facility] ABSTRACTION Provider, Abstract 01/31/2025 External Device Data [facility] ABSTRACTION Provider, Abstract 01/30/2025 External Device Data ST[facility] ABSTRACTION Provider, Abstract 11/29/2024 External Device Data STL ABSTRACTION Provider, Abstract from Last 3 Months Family History Medical History Relation Name Comments Diabetes Father Heart Disease Father Ovarian Cancer Mother Stroke Sister No Known Problems Son 1 No Known Problems Son 2 Relation Name Status Comments Father Mother Sister Son 1 Alive Son 2 Alive Social History Tobacco Use Types Packs/Day Years Used Date Smoking Tobacco: Former Cigarettes 1 15 0 09/13/1975 - 09/13/1990 Smokeless Tobacco: Never Tobacco Cessation:Counseling Given: Not Answered Alcohol Use Standard Drinks/Week Comments Yes 0 (1 standard drink = 0.6 oz pur e alcohol) sometimes Comments Unknown Sex and Gender Information Value Date Recorded Sex Assigned at Not on file Legal Sex Female 9:58 AM CDT Gender Identity Not on file Sexual Orientation Not on file Last Filed Vital Signs Vital Sign Reading Time Taken Comments Blood Pressure 139/78 10/02/2024 10:53 AM NUCLEAR EQUIPMENT TEST ENGINEER Pulse 64 10/02/2024 10:53 AM NUCLEAR EQUIPMENT TEST ENGINEER Temperature 36.6 C (97.9 F) 10/02/2024 10:53 AM NUCLEAR EQUIPMENT TEST ENGINEER Respiratory Rate 16 10/02/2024 10:53 AM NUCLEAR EQUIPMENT TEST ENGINEER Oxygen Saturation 94% 10/02/2024 10:53 AM NUCLEAR EQUIPMENT TEST ENGINEER Inhaled Oxygen Concentration - - Weight 85.1 kg (187 lb 9.6 oz) 10/02/2024 10:53 AM NUCLEAR EQUIPMENT TEST ENGINEER Height 162.6 cm (5' 4) 09/09/2022 12:00 PM NUCLEAR EQUIPMENT TEST ENGINEER Body Mass Index 32.2 09/09/2022 12:00 PM NUCLEAR EQUIPMENT TEST ENGINEER Plan of Treatment Upcoming Encounters Date Type Department Care Team (Late st Contact Info) Description 07/02/2025 11:30 AM CDT Office Visit [facility] ([facility] Oncology and Hematology - [address] [facility] [address] [place] [address] Janes Cruz MD [address] [facility] [address] [place] [address] Health Maintenance Due Date Last Done Comments DIABETES MICROALBUMIN ANNUAL SCREEN 11/28/1971 LDL CHOLESTEROL ANNUAL 11/28/1971 DTAP/TDAP/TD VACCINES (1 - Tdap) 1972 BREAST CANCER SCREENING 1993 FIT-DNA Q 3 years 1998 FIT/FOBT Q 1 year 1998 Flex Sig/CT Colonography Q 5 years 1998 RSV VACCINE (60+ or ) (1 - Risk 60-74 years 1-dose series) 2013 OSTEOPOROSIS SCREENING 2018 DIABETES HBA1C Q 6 MONTHS 06/21/2019 12/20/2018 DIABETES ANNUAL FOOT EXAM 12/21/2019 12/20/2018 ZOSTER VACCINE (2 of 2) 12/17/2020 10/22/2020 DIABETES ANNUAL RETINAL EXAM 09/26/2021 09/26/2020 INFLUENZA VACCINE (#1) 2024 , 07/14/2020, 04/28/2019 COLORECTAL SCREENING 12/02/2031 12/01/2021 Colorectal Cancer Screening 12/02/2031 PNEUMOCOCCAL VACCINE 50+ YEARS Completed 1 , 06/13/2020, 11/17/[address] [id number] Care Teams Gasoline Pump Installer Relationship Specialty Start Date End Date Jessica Brice MD PCP - General Family Practice 09/09/22
--- OUTSIDE RECORDS SUMMARY | 2025-02-19 08:59 | XMS_ITS | Continuity of Care Document ---
Author Organization [place] Address [address] [facility] [address] [place] [address] Insurance Providers Payer Plan Claims Address Claims Phone Policy Number Group Number Relation Employer Guarantor Name Guarantor Guarantor Address Guarantor Phone [facility] [id number] [address] [address], [place] [address] tel:[phone] Self Jennifer Hesham [address] [place] [address], [facility] [employer] [address] [address], [place] [address] tel:[phone] Self Jennifer Barretobijal [address] [place] [address], [place] [address] [employer] [address] [address], [place] [address] tel:[phone] Self Jennifer Dahl [address] [place] [address], [place] [address] Problems Unknown Problems Results Test Value / Unit Interpretation Reference Ran ge Lab Report Jennifer [email or web address].pdf Allergies, adverse reactions, alerts No known allergies and adverse reactions Medications No administered medications reported Vital Signs No vital signs reported Social History No smoking Hx information available
--- OUTSIDE RECORDS SUMMARY | 2025-02-19 08:59 | XMS_ITS | Patient Health Record ---
Author Organization [facility] Address [address] [place] [address] Care Team Providers Care Human Resources Temp Name Role Phone Bren HENRIQUEZ, Latasha Primary Care Provider Unavailab le Allergies No Known Allergies Reason For Referral No Information Medications Medication SIG (Take, Route, Frequency, Duration) Notes Start Date End Date Status Atorvastatin Calcium Active Levothyroxine Sodium Active ALPRAZolam Active Amoxicillin Active Hydrocortisone Activ e Augmentin 500-125 MG 1 tablet Orally francia ry 8 hrs for 10 day(s) 11/17/2021 Active amLODIPine Besy-Benazepril HCl Active traZODone HCl Active buPROPion HCl Active lamoTRIgine Active Social History Tobacco Use: Social History Observation Description Date Details (start date - stop date) Former Smoker NA - NA Tobacco Use/Smoking Question Answer Notes Are you a former smoker How long has it been since you last smoked? > 10 years Alcohol Screen (Audit-C) Question Answer Notes Did you have a drink contain ing alcohol in the past year? Yes How often did you have a dri nk containing alcohol in the past year? 2 to 3 times a week (3 points) Points 3 Interpretation Positive Problems Problem Type SNOMED Code ICD Code Onset Dates Problem Status W/U Status Risk Notes Problem Chronic leukemia in remission (39830163) Chronic leukemia of unspecified cell type, 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) Active confirmed Problem Iron deficiency anemia, unspecified (D50.9) Active confirmed Problem Diverticulitis of colon (030233606) Diverticulitis of large intestine without perforation or abscess without bleeding (K57.32) Active confirmed Problem Left lower quadrant pain (454638303) Left lower quadrant pain (R10.32) Active confirmed Problem Anorexia (58364175) Anorexia (R63.0) Active confirmed Problem Encounter for screening for malignant neoplasm of colon (Z12.11) Active confirmed Problem Diverticulitis (39975176) Diverticulitis (K57.32) Active confirmed Problem Anemia (765029910) Anemia, unspecified (D64.9) Active confirmed Problem Chronic kidney disease stage 3A (disorder) (865961398) Chronic kidney disease, stage 3a (N18.31) Active confirmed Plan Of Treatment No Information Insurance Providers Payer Name Payer Address Payer Phone Subscriber Number Group Number Insured Name Patient Relationship to Insured Coverage Start Date Coverage End Date [facility] Medicare Advantage [address] [address] [place] [address] [id number] Jennifer Dahl Self - patient is the insured Medical (General) History Medical History History ICD Code high blood pressure diabetes thyroid trouble kidney trouble amxiety and depression Surgical History Surgery Date(Month/Year) Hospitalization History Reason Date(Month/Year) diverticulitis 10/2021
--- OUTSIDE RECORDS SUMMARY | 2025-02-19 08:59 | XMS_ITS | Referral Summary ---
Author Organization [facility] Address [address] [place] [address] Care Team Providers Care Parking Lot Attendant Name Role Phone Dario Brice MD Primary Care Provider [phone] William Goff MD Unavailable Allergies No known active allergies Medications ARIPiprazole (ABILIFY) 10 mg tablet 10/20/2016Abilify, po solid 10 mg TabletPOdailyCurrent Medication 2016 Active ALPRAZolam (XANAX) 1 mg tablet 10/20/2016Alprazolam, po solid 1 mg TabletPOTID PRN anxietyCurrent Medication 2016 Active FLUoxetine (PROzac) 40 mg capsule 10/20/2016Fluoxetine hcl, po solid 80 mg CapsulePOdailyCurrent Medication 2016 Active insulin regular (HumuLIN R, NovoLIN R) 100 unit/mL injection 10/20/2016Insulin regular, human, inj 100/ml Vial (ml)sub-QQAMCurrent Medication 2016 Active levothyroxine (SYNTHROID, LEVOTHROID) 200 mcg tablet TK 1 T PO QD 3 2017 Active ARIPiprazole (ABILIFY) 2 mg tablet TK 1 T PO QD 5 2017 Active tretinoin (RETIN-A) 0.05 % cream RICHARDSON EXT AA QD HS 0 2017 Active triamcinolone (KENALOG) 0.1 % cream RICHARDSON THIN LAYER EXT AA TID 0 2017 Active predniSONE (DELTASONE) 5 mg tablet TAKE 3 TABLETS BY MOUTH EVERY DAY FOR 7 DAYS, THEN 2 TABLETS FOR 7 DAYS, THEN 1 TABLET FOR 7 DAYS AND CONTINUE 50 tablet 2018 Active GLUCAGON 1 mg injection U UTD FOR LOW BLOOD SUGAR 1 2018 Active insulin aspart, niacinamide, (FIASP U-100 INSULIN) 100 unit/mL solution Inject 100 units daily via insulin pump 90 mL 1 2018 Active fludrocortisone 0.1 mg tablet Take 1 tablet (0.1 mg total) by mouth daily 30 tablet 1 2018 Active fludrocortisone 0.1 mg tablet TAKE 1 TABLET(0.1 MG) BY MOUTH DAILY 30 tablet 2018 Active HUMALOG U-100 INSULIN 100 unit/mL injectionIndica tions:Type 1 diabetes mellitus with hyperglycemia (HCC) Use up to 100 units a day via insulin pump 90 mL 2018 Active buPROPion (WELLBUTRIN) 75 mg tablet 10/20/2016Bupropion hcl, po solid 300 mg TabletPOdailyCurrent Medication 05/03 Discontinued traZODone (DESYREL) 50 mg tablet 10/20/2016Trazodone hcl, po solid 50 mg TabletPOdailyCurrent Medication 05/03 Discontinued atorvastatin (LIPITOR) 40 mg tablet TK 1 T PO QHS 3 05/03 Discontinued Active Problems Problem Noted Date Diagnosed Date COVID-19 virus infection 05/03/2022 Type 1 diabetes mellitus with hyperglycemia 05/2019 Assessment & Plan (12/20/2018 1:17 PM CDT): Hba1c was Lab Results Component Value Date HGBA1C 6.2 12/20/2018 today, indicating adequate DM control 1800 calorie, consistent carb diet recommended 25-45 min daily exercise, combining both aerobic and resistance exercise recommended. The need to monitor blood glucose before meals and bedtime was discussed. Dose of basal and prandial insulin adjusted as follows: Continue pump at current settings. Prevention and treatment of hyypoglcyemia discussed. Acquired hypothyroidism 12/20/2018 Assessment & Plan (12/20/2018 12:31 PM CDT): Continue Levothryoxine, 200 mcg daily Take the medication in the morning,on an empty stomach. Adrenal insufficiency 12/20/2018 Assessment & Plan (12/20/2018 1:17 PM CDT): It is very important that you take your mediation every day, regularly . In situations of stress, either physical or psychological, the dose of the steroids should be doubled or tripled for a few days. In case of not tolerating oral intake , including vomiting , take injections of hydrocortisone as instructed. Have a medical alert bracelet or necklace stating you have [place]'s disease and that you take steroids. In case of any extreme weakness, abdominal pain, diarrhea or dizziness, it is recommended for you to call an ambulance and proceed to the nearest emergency room. CLL (chronic lymphocytic leukemia) 04/29/2018 Immunizations Immunization Administration Dates Next Due Influenza, Unspecified 07/07/2018 Social History Tobacco Use Types Packs/Day Years Used Date Smoking Tobacco: Former Cigarettes 1 10 1 975 - 1984 Smokeless Tobacco: Never Tobacco Cessation:Counseling Given: Yes Alcohol Use Standard Drinks/Week Comments Yes 0 (1 standard drink = 0.6 oz pur e alcohol) rare PHQ-2 Answer Date Recorded PHQ-2 Score 0 05/06/2019 Personal Safety Answer Date Recorded Getting School Help Needed Not on file 11/27 Comments Unknown Sex and Gender Information Value Date Recorded Sex Assigned at Not on file Legal Sex Female 11:38 AM ACID LOADER Gender Identity Not on file Sexual Orientation Not on file Last Filed Vital Signs Vital Sign Reading Time Taken Comments Blood Pressure 112/56 05/03/2022 1:18 PM CDT Pulse 72 05/03/2022 1:18 PM CDT Temperature 37.8 C (100 F) 05/03/2022 1:18 PM CDT Respiratory Rate 16 05/03/2022 1:18 PM CDT Oxygen Saturation 97% 05/03/2022 1:18 PM CDT Inhaled Oxygen Concentration - - Weight 76.7 kg (169 lb) 05/03/2022 9:29 AM CDT Height 160 cm (5' 3) 05/03/2022 9:29 AM CDT Body Mass Index 29.94 05/03/2022 9:29 AM CDT Plan of Treatment Not on file Procedures Procedure Name Priority Date/Time Associated Diagnosis Comments EGFR STAT 05/03/2022 9:43 AM CDT POCT HEMOGLOBIN A1C Routine 12/20/2018 1 :13 PM CDT Type 1 diabetes mellitus with hyperglycemia (HCC) from Last 3 Months or Most Recently Relevant to Health Maintenance Results * eGFR (05/03/2022 9:43 AM CDT) eGFR 73 mL/min/1. 73 m2 [facility] Comment: Interpretive Data Reference Interval Normal >/= 90 mL/min/1.73m2 Mildly decreased* 60 - 89 mL/min/1.73m2 Mildly to moderately decreased 45 - 59 mL/min/1.73m2 Moderately to severely decreased 30 - 44 mL/min/1.73m2 Severely decreased 15 - 29 mL/min/1.73m2 Kidney Failure < 15 mL/min/1.73m2 *Relative to young adult level Estimated glomerular filtration rate is determined by the 2020 CKD-EPI equation recommended by the National Kidney Foundation (A Unifying Approach to GFR Estimation: Recommendations of the NKF-ASK Task Force on Reassessing the Inclusion of Race in Diagnosing Kidney Disease, JASN 2020). The CKD-EPI equation should not be used for patients with unstable renal function and has not been validated in children and those over 70. Current interpretive data was last reviewed 2021. Blood 05/03/2022 9:43 AM CDT 05/03/2022 10:19 AM CDT us Eliecer Ty MD LAB BLOOD ORDERABLES Final Result [facility] [address] [place] [address] * POCT hemoglobin A1c (12/20/2018 1:13 PM CDT) Hemoglobin A1C, POC 6.2 Blood specimen (specimen) 12/20/2018 1:13 PM CDT Jimy Mao MD POINT OF CARE TEST ORDERABLES Fi nal Result from Last 3 Months or Most Recently Relevant to Health Maintenance Insurance UHC MEDICARE ADVANTAGE [facility] MEDICARE Address: [facility] [address] [place] [address] UHC MEDICARE ADVANTAGE Care Teams Parking Lot Attendant Relationship Specialty Start Date End Date Dario Brice MD PCP - General 03/01/07 William Goff MD Medical Oncologist/Insurance Case Manager Hematology and Oncology 02/07/19
--- OUTSIDE RECORDS SUMMARY | 2025-02-19 08:59 | XMS_ITS | Clinical Summary ---
Author Organization [facility] Address [address] [place] [address] Care Team Providers Care Trailer Mechanic Name Role Phone Dario Brice MD Primary Care Provider [phone] William Goff MD Unavailable [phone] Allergies No known active allergies Medications ARIPiprazole [...] alert bracelet or necklace stating you have [place]'s disease and that you take steroids. In case of any extreme weakness, abdominal pain, diarrhea or dizziness, it is recommended for you to call an ambulance and proceed to the nearest emergency room. CLL (chronic lymphocytic leukemia) 04/29/2018 Immunizations Immunization Administration Dates Next Due Influenza, Unspecified 07/07/2018 Surgical History Surgery Date Site/Laterality Comments COLONOSCOPY Medical History Medical History Date Comments CLL (chronic lymphocytic leukemia) (HCC) Hypercholesteremia Diabetes mellitus (HCC) Adrenal insufficiency Family History Medical History Relation Name Comments Cervical cancer Mother Relation Name Status Comments Mother Social History Tobacco Use Types Packs/Day Years Used Date Smoking Tobacco: Former Cigarettes 1 10 1 975 - 1985 Smokeless Tobacco: Never Tobacco Cessation:Counseling Given: Yes [...] on file Legal Sex Female 11:38 AM TRAINING MANAGER Gender Identity Not on file Sexual Orientation Not on file Obstetrics History Last Filed Vital Signs Vital Sign Reading [...] 05/03/2022 9:29 AM CDT Plan of Treatment Health Maintenance Due Date Last Done Comments Albumin Creatinine Ratio, Urine 1955 Breast Cancer Screening-Mammogram 1955 Colon Cancer Screening-Colonoscopy 1955 Fall Risk Assessment 1955 Hepatitis C Screening 1955 Osteoporosis Screening-Bone Density Scan 1955 TSH Level 1955 Dilated Eye Exam 11/28/1963 Lipid Panel 11/28/1963 DTaP/Tdap/Td Vaccine (1 - Tdap) 1964 Hepatitis B Screening 11/28/1971 Well Visit 65+ 2018 Hemoglobin A1C 06/21/2019 12/20/2018 Depression Screening 12/21/2019 12/20/2018 Foot Exam 12/21/2019 12/20/2018 Zoster Vaccine (2 of 2) 12/17/2020 10/22/2020 eGFR 05/03/2023 05/03/2022, 07/0 09/2018, 02/09/2019, Additional history exists Influenza Vaccine (Season Ended) 2025 06/22/2021, 04/28/2019, 07/07/2018, Additional history exists Pneumococcal vaccine 65+ Completed 020, 06/13/2020, 11/17/2019 Procedures Procedure Name Priority Date/Time Associated Diagnosis Comments EGFR STAT 05/03/2022 9:43 AM CDT POCT HEMOGLOBIN A1C Routine 12/20/2018 1 :13 PM CDT Type 1 diabetes mellitus with hyperglycemia (HCC) from Last 3 Months or Most Recently Relevant to Health Maintenance Results * eGFR (05/03/2022 9:43 AM CDT) eGFR 73 mL/min/1. 73 m2 [facility] Comment: Interpretive Data Reference Interval Normal >/= [...] 9:43 AM CDT 05/03/2022 10:19 AM CDT Eliecer Ty MD LAB BLOOD ORDERABLES Final Result [facility] [address] Department [place] [address] * POCT hemoglobin A1c (12/20/2018 1:13 PM CDT) Hemoglobin A1C, POC 6.2 Blood specimen (specimen) 12/20/2018 1:13 PM CDT Jimy Mao MD POINT OF CARE TEST ORDERABLES Fi nal Result from Last 3 Months or Most Recently Relevant to Health Maintenance Insurance [facility] MEDICARE ADVANTAGE UHC MEDICARE ADVANTAGE Care Teams Trailer Mechanic Relationship Specialty Start Date End Date Dario Brice MD PCP - General 03/01/07 William Goff MD Medical Oncologist/Client Integration Manager Hematology and Oncology 02/07/19
[2025-02-19 09:06] LABS: Hematocrit 37.2 % (37.0-47.0); Hemoglobin 11.4 g/dL (12.0-15.0); Mean Corpuscular HGB Conc 30.6 g/dl (32-36); Mean Corpuscular Hemoglobin 28.9 pg (26-34); Mean Corpuscular Volume 94.4 fl (80-100); Mean Platelet Volume 11.2 fl (7.4-10.4); Platelet Count Result 197 k/mm3 (150-375); Red Blood Count 3.94 M/mm3 (4.2-5.4); Red Cell Distribution Width 15.1 % (11.5-14.5); White Blood Count 16.9 K/mm3 (4.5-10.0)
[2025-02-19 09:36] LABS: Sodium Urine Random 78 meq/L
[2025-02-19 09:37] LABS: Albumin Level 3.9 g/dL (3.5-5.1); Anion Gap 8 mmol/L (4-12); Blood Urea Nitrogen 17 mg/dL (7-17); Calcium 9.4 mg/dL (8.4-10.2); Carbon Dioxide 24 mmol/L (22-30); Chloride 104 mmol/L (98-107); Estimated Glomerular Filt Rate 53; Glucose 148 mg/dL (65-110); Phosphorus 3.9 mg/dL (2.5-4.5); Sodium 136 mmol/L (137-145)
[2025-02-19 09:45] LABS: Creatinine Urine 104.8 mg/dL; Total Protein Urine Random 16 mg/dL; Ur Ttl Prot Creatinine Ratio 0.15 mg/mg (0-0.20)
[2025-02-19 09:46] LABS: Parathyroid Intact 26.1 pg/mL (14.5-75.2)
[2025-02-19 10:09] LABS: Cortisol Random 8.97 ug/dL
[2025-02-20 10:10] LABS: Osmolality, Urine 692 mOsm/kg (50-1200)
== END 2025-02-19 08:35 | disposition home or self-care (01) ==
LOC: ANHLAB 08:40
PROVIDERS: PCP Family Medicine; Visit Provider Internal Medicine Nephrology
DX: N18.31 Chronic kidney disease, stage 3a (principal); E87.1 Hypo-osmolality and hyponatremia; F41.9 Anxiety disorder, unspecified; E66.09 Other obesity due to excess calories; Z68.30 Body mass index [BMI] 30.0-30.9, adult
CPT/HCPCS: 36415; 80069; 82533; 82570; 83930; 83935; 83970; 84156; 84300; 84443; 85027

== ENCOUNTER 2025-02-21 08:56 | Outpatient (CLI) | payer MEDICARE, SELFPAY ==
--- OUTSIDE RECORDS SUMMARY | 2025-02-21 09:30 | XMS_ITS | Patient Health Record ---
Author Organization [facility] Address [address] [place] [address] Care Team Providers Care Flat Hammerer Name Role Phone Bren HENRIQUEZ, Latasha Primary [...] Risk Notes Problem Chronic leukemia in remission (65955058) Chronic leukemia of unspecified cell type, 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) Active confirmed Problem Iron deficiency anemia (64095341) Iron deficiency anemia, unspecified (D50.9) Active confirmed Problem Diverticulitis of colon (496970240) Diverticulitis of large intestine without perforation or abscess without bleeding (K57.32) Active confirmed Problem Left lower quadrant pain (051253862) Left lower quadrant pain (R10.32) Active confirmed Problem Anorexia (22404269) Anorexia (R63.0) Active confirmed Problem Screening for malignant neoplasm of colon (530585830) Encounter for screening for malignant neoplasm of colon (Z12.11) Active confirmed Problem Diverticulitis (88440707) Diverticulitis (K57.32) Active confirmed Problem Anemia (484981145) Anemia, unspecified (D64.9) Active confirmed Problem Chronic kidney disease stage 3A (disorder) (839543670) Chronic kidney disease, stage 3a (N18.31) Active confirmed Plan Of Treatment No Information Insurance Providers Payer Name Payer Address Payer Phone Subscriber Number Group Number Insured Name Patient Relationship to Insured Coverage Start Date Coverage End Date [facility] Medicare Advantage [address] [address] [place] [address] [id number] Jennifer Dahl Self - patient is the insured Medical (General) History Medical History History ICD Code high blood pressure diabetes thyroid trouble kidney trouble amxiety and depression Surgical History Surgery Date(Month/Year) Hospitalization History Reason Date(Month/Year) diverticulitis 10/2021
--- OUTSIDE RECORDS SUMMARY | 2025-02-21 09:30 | XMS_ITS | Referral Summary ---
Author Organization [facility] Address [address] [place] [address] Care Team Providers Care Apprentice Name Role Phone Dario Brice MD Primary Care Provider [phone] William Goff MD Unavailable [phone] Allergies No known active allergies Medications [...] alert bracelet or necklace stating you have [place]'s disease and that you take steroids. In [...] on file Legal Sex Female 11:38 AM AGRICULTURE INTERNSHIP Gender Identity Not on file Sexual Orientation [...] CDT) eGFR 73 mL/min/1. 73 m2 [facility] Comment: Interpretive Data Reference Interval Normal [...] Ty MD LAB BLOOD ORDERABLES Final Result [facility] [address] Department [place] [address] * POCT hemoglobin A1c (12/20/2018 1:13 PM CDT) Hemoglobin A1C, POC 6.2 Blood specimen (specimen) 12/20/2018 1:13 PM CDT Jimy Mao MD POINT OF CARE TEST ORDERABLES Fi nal Result from Last 3 Months or Most Recently Relevant to Health Maintenance Insurance UHC MEDICARE ADVANTAGE [facility] Address: [facility] [address] [place] [address] UHC MEDICARE ADVANTAGE Care Teams Apprentice Relationship Specialty Start Date End Date Dario Brice MD PCP - General 03/01/07 William Goff MD Medical Oncologist/Flask Pusher Hematology and Oncology 02/07/19
--- OUTSIDE RECORDS SUMMARY | 2025-02-21 09:30 | XMS_ITS | Clinical Summary ---
Author Organization [facility] Address [address] [place] [address] Care Team Providers Care Jig Builder Helper Name Role Phone Dario Brice MD Primary Care Provider [phone] William Goff MD Unavailable [phone] Allergies No known active allergies Medications [...] alert bracelet or necklace stating you have [place]'s disease and that you take steroids. 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 73 m2 [facility] Comment: Interpretive Data Reference Interval Normal >/= [...] MD LAB BLOOD ORDERABLES Final Result [facility] [address] Department [place] [address] * POCT hemoglobin A1c (12/20/2018 1:13 PM CDT) Hemoglobin A1C, POC 6.2 Blood specimen (specimen) 12/20/2018 1:13 PM CDT Jimy Mao MD POINT OF CARE TEST ORDERABLES Fi nal Result from Last 3 Months or Most Recently Relevant to Health Maintenance Insurance [facility] MEDIC[facility] ADVANTAGE [facility] Address: [facility] [address] [place] [address] UHC MEDICARE ADVANTAGE [facility] Address: [facility] [address] [place] [address] Care Teams Jig Builder Helper Relationship Specialty Start Date End Date Dario Brice MD PCP - General 03/01/07 William Goff MD Medical Oncologist/Dip Painter Hematology and Oncology 02/07/19
--- OUTSIDE RECORDS SUMMARY | 2025-02-21 09:30 | XMS_ITS | Clinical Summary ---
Author Organization [facility] Sagrario May Address [address] [place] [address] Care Team Providers Care Registered Medical Transcriptionist Name Role Phone Jessica Brice MD Primary Care Provider [phone] Allergies No known active allergies Medications amLODIPine [...] Comments Blood Pressure 139/78 10/02/2024 10:53 AM SOLAR WATER HEATER INSTALLER Pulse 64 10/02/2024 10:53 AM SOLAR WATER HEATER INSTALLER Temperature 36.6 C (97.9 F) 10/02/2024 10:53 AM SOLAR WATER HEATER INSTALLER Respiratory Rate 16 10/02/2024 10:53 AM SOLAR WATER HEATER INSTALLER Oxygen Saturation 94% 10/02/2024 10:53 AM SOLAR WATER HEATER INSTALLER Inhaled Oxygen Concentration - - Weight 85.1 kg (187 lb 9.6 oz) 10/02/2024 10:53 AM SOLAR WATER HEATER INSTALLER Height 162.6 cm (5' 4) 09/09/2022 12:00 PM SOLAR WATER HEATER INSTALLER Body Mass Index 32.2 09/09/2022 12:00 PM SOLAR WATER HEATER INSTALLER Plan of Treatment Upcoming Encounters Date Type Department Care Team (Late st Contact Info) Description 07/02/2025 11:30 AM CDT Office Visit [facility] Oncology and Hematology - [place] [address] [place] [address] Janes Cruz MD [address] [facility] [address] [place] [address] Health Maintenance Due Date Last [...] Completed 1 , 06/13/2020, 11/17/[address] [address] Care Teams Registered Medical Transcriptionist Relationship Specialty Start Date End Date Jessica Brice MD PCP - General Family Practice 09/09/22
[2025-02-21 11:09] LABS: Total Volume 24 Hour Urine 1500 ml; Urea Nitrogen 24 Hour Urine 3.5 G/DAY (12-20)
== END 2025-02-21 08:57 | disposition home or self-care (01) ==
LOC: ANHLAB 08:58
PROVIDERS: PCP Family Medicine; Visit Provider Internal Medicine Nephrology
DX: N18.31 Chronic kidney disease, stage 3a (principal); E87.1 Hypo-osmolality and hyponatremia
CPT/HCPCS: 81050; 84540; 86335

== ENCOUNTER 2025-03-20 07:48 | Outpatient (CLI) | payer MEDICARE, SELFPAY ==
--- OUTSIDE RECORDS SUMMARY | 2025-03-20 07:52 | XMS_ITS | Patient Health Record ---
Author Organization [facility] Address [address] [place] [address] Care Team Providers Care Extension Work Director Name Role Phone Bren HENRIQUEZ, Latasha Primary Care Provider Unavailab le Allergies No Known Allergies Reason For Referral No Information Medications Medication SIG (Take, Route, Frequency, Duration) Notes Start Date End Date Status Atorvastatin Calcium Active Levothyroxine Sodium Active ALPRAZolam Active Amoxicillin Active Hydrocortisone Activ e Augmentin 500-125 MG 1 tablet Orally francia ry 8 hrs; Duration: 10 day(s) 11/17/2021 Active amLODIPine Besy-Benazepril HCl [...] Risk Notes Problem Chronic leukemia in remission (43978564) Chronic leukemia of unspecified cell type, 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) Active confirmed Problem Iron deficiency anemia (26851290) Iron deficiency anemia, unspecified (D50.9) Active confirmed Problem Diverticulitis of colon (537734414) Diverticulitis of large intestine without perforation or abscess without bleeding (K57.32) Active confirmed Problem Left lower quadrant pain (067105094) Left lower quadrant pain (R10.32) Active confirmed Problem Anorexia (26687259) Anorexia (R63.0) Active confirmed Problem Screening for malignant neoplasm of colon (663741899) Encounter for screening for malignant neoplasm of colon (Z12.11) Active confirmed Problem Diverticulitis (60799856) Diverticulitis (K57.32) Active confirmed Problem Anemia (274361647) Anemia, unspecified (D64.9) Active confirmed Problem Chronic kidney disease stage 3A (disorder) (471891117) Chronic kidney disease, stage 3a (N18.31) Active confirmed Plan Of Treatment No Information Insurance Providers Payer Name Payer Address Payer Phone Subscriber Number Group Number Insured Name Patient Relationship to Insured Coverage Start Date Coverage End Date [facility] Medicare Advantage [address] [address] [place] [address] [id number] 2 Jennifer Dahl Self - patient is the insured Medical (General) History Medical History History ICD Code high blood pressure diabetes thyroid trouble kidney trouble amxiety and depression Surgical History Surgery Date(Month/Year) Hospitalization History Reason Date(Month/Year) diverticulitis 10/2021
--- OUTSIDE RECORDS SUMMARY | 2025-03-20 07:52 | XMS_ITS | Clinical Summary ---
Author Organization [facility] Sagrario May Address [address] [place] [address] Care Team Providers Care Ingredient Handler Name Role Phone Jessica Brice MD Primary Care Provider [phone] Allergies No known active allergies Medications amLODIPine [...] Encounters Date Type Department Care Team Description 03/06/2025 External Device Data STL ABSTRACTION Provider, Abstract 02/27/2025 External Device Data ST[facility] ABSTRACTION Provider, Abstract 02/06/2025 External Device Data [facility] ABSTRACTION Provider, [...] Comments Blood Pressure 139/78 10/02/2024 10:53 AM ADMITTING OFFICER Pulse 64 10/02/2024 10:53 AM ADMITTING OFFICER Temperature 36.6 C (97.9 F) 10/02/2024 10:53 AM ADMITTING OFFICER Respiratory Rate 16 10/02/2024 10:53 AM ADMITTING OFFICER Oxygen Saturation 94% 10/02/2024 10:53 AM ADMITTING OFFICER Inhaled Oxygen Concentration - - Weight 85.1 kg (187 lb 9.6 oz) 10/02/2024 10:53 AM ADMITTING OFFICER Height 162.6 cm (5' 4) 09/09/2022 12:00 PM ADMITTING OFFICER Body Mass Index 32.2 09/09/2022 12:00 PM ADMITTING OFFICER Plan of Treatment Upcoming Encounters Date Type Department Care Team (Late st Contact Info) Description 07/02/2025 11:30 AM CDT Office Visit [facility] Oncology and Hematology - [place] [address] [facility] [address] [place] [address] Janes Cruz MD [address] [facility] [address] [place] [address] Health Maintenance Due Date Last [...] RETINAL EXAM 09/26/2021 09/26/2020 INFLUENZA VACCINE (#1) 2025 , 07/14/2020, 04/28/2019 COLORECTAL SCREENING 12/02/2031 12/01/2021 Colorectal Cancer Screening 12/02/2031 PNEUMOCOCCAL VACCINE 50+ YEARS Completed 1 , 06/13/2020, 11/17/2019 Insurance Care Teams Ingredient Handler Relationship Specialty Start Date End Date Jessica Brice MD PCP - General Family Practice 09/09/22
[2025-03-20 08:21] LABS: Hemoglobin A1C 6.1 % (<5.7)
[2025-03-20 08:39] LABS: Alanine Aminotransferase 52 U/L (6-35); Albumin Level 4.1 g/dL (3.5-5.1); Alkaline Phosphatase 76 U/L (38-126); Anion Gap 10 mmol/L (4-12); Aspartate Amino Transferase 50 U/L (14-36); Bilirubin,Total 0.6 mg/dL (0.2-1.3); Blood Urea Nitrogen 17 mg/dL (7-17); Calcium 9.6 mg/dL (8.4-10.2); Carbon Dioxide 25 mmol/L (22-30); Chloride 102 mmol/L (98-107); Cholesterol 166 mg/dL (0-200); Estimated Glomerular Filt Rate 53; Glucose 171 mg/dL (65-110); HDL Direct 55 mg/dL; Potassium 4.4 mmol/L (3.4-5.0); Sodium 137 mmol/L (137-145); Total Protein 6.4 g/dL (6.3-8.2); Triglycerides 191 mg/dL (<150)
[2025-03-20 09:05] LABS: Thyroid Stimulating Hormone 0.976 uIU/mL (0.465-4.680)
== END 2025-03-20 07:49 | disposition home or self-care (01) ==
LOC: ANHLAB 07:49
PROVIDERS: PCP Family Medicine; Visit Provider Family Medicine
DX: E10.65 Type 1 diabetes mellitus with hyperglycemia (principal); E78.5 Hyperlipidemia, unspecified; E03.9 Hypothyroidism, unspecified
CPT/HCPCS: 36415; 80053; 80061; 83036; 84443

== ENCOUNTER 2025-04-14 13:57 | Outpatient (CLI) | payer MEDICARE, SELFPAY ==
--- NOTE | ~2025-04-14 | MR_ITS ---
EXAMINATION: MR brain/brain stem wo con DATE: 04/14/2025 15:18 INDICATION: Visual disturbance TECHNIQUE: Magnetic resonance imaging (MRI) of the brain and brainstem was performed without intraven ous contrast. Sequences included sagittal and axial T1-weighted SE, axial diffusion-weighted FS SE, a xial 3D SWAN, axial T2-weighted FLAIR, and axial T2-weighted FSE. Postcontrast axial and coronal T1-w eighted SE was obtained. Apparent diffusion coefficient (ADC) maps were created. COMPARISON: None. FINDINGS: There are no areas of restricted diffusion to suggest acute infarction. No intracranial hemorrhage or abnormal intracranial mass lesion. There are no intraparenchymal signal abnormalities seen on the ot her pulse sequences. The ventricles are symmetric and normal in size. There are no abnormal extra-axi al fluid collections. Flow voids are seen in the cerebral arteries on the T2-weighted sequences consi stent with their expected patency. Mild mucosal thickening the bilateral ethmoid sinuses. Visualized orbits and soft tissues are unremarkable. IMPRESSION: 1. Normal brain. No acute intracranial process. Reviewed, dictated and finalized at location A.
--- OUTSIDE RECORDS SUMMARY | 2025-04-14 14:30 | XMS_ITS | Referral Summary ---
Author Organization [facility] Address [address] [place] [address] Care Team Providers Care Dielectric Press Operator Name Role Phone Dario Brice MD Primary Care Provider [phone] William Goff MD Unavailable [phone] Allergies No known active allergies Medications [...] alert bracelet or necklace stating you have [place]'s disease and that you take steroids. In [...] on file Legal Sex Female 11:38 AM HAND ROUNDER Gender Identity Not on file Sexual Orientation [...] CDT) eGFR 73 mL/min/1. 73 m2 [facility] Comment: Interpretive Data Reference Interval Normal >/= [...] Ty MD LAB BLOOD ORDERABLES Final Result [facility] [address] [place] [address] * POCT hemoglobin A1c (12/20/2018 1:13 PM CDT) Hemoglobin A1C, POC 6.2 Blood specimen (specimen) 12/20/2018 1:13 PM CDT Jimy Mao MD POINT OF CARE TEST ORDERABLES Fi nal Result from Last 3 Months or Most Recently Relevant to Health Maintenance Insurance [place] [address] [place] [address] Care Teams Dielectric Press Operator Relationship Specialty Start Date End Date Dario Brice MD PCP - General 03/01/07 William Goff MD Medical Oncologist/Robotics Application Engineer Hematology and Oncology 02/07/19
--- OUTSIDE RECORDS SUMMARY | 2025-04-14 14:30 | XMS_ITS | Continuity of Care Document ---
Author Organization [facility] Address [address] [place] [address] [address] [place] [address] Phone Care Team Providers Care Nutrition Aide Name Role Phone Jodie Hernandez Unavailable Unavailable Advance Directives Directive Yes / No Effective Date File Name No Information Encounters Encounter Description Practice Location Reason(s) For Visit Diagnoses Date Provider Providers Copied on Encounter [facility], [id number] [place] [address] [address], [place], [place], [id number], [place] tel:[phone] [facility] No Information [address] , [address], [place], [address], [place]. tel:[phone] Family History Family Member Type Diagnosis Age At Onset No Information Payers Payer name Insurance type Covered constitution party ID Authoriza tion(s) General [employer] [id number] Social History Type Description Quantity Date Captured Comments Sex Female Smoking Status No Information Chief Complaint And Reason For Visit No Information Reason For Referral Reason For Referral No Information History Of Present Illness Encounter Date Complaint History Of Prese nt Illness No Information Functional Status Date Functional Assessmen t No Information Instructions Date Instruction Additional Infor mation No Information Assessments Type Assessment Date No Information Patient Care Teams Name Effective Dates (start - stop) Status Members No Information
--- OUTSIDE RECORDS SUMMARY | 2025-04-14 14:30 | XMS_ITS | Clinical Summary ---
Author Organization [facility] Address [address] [place] [address] Care Team Providers Care Pharmaceutical Laboratory Technician Name Role Phone Dario Brice MD Primary Care Provider [phone] William Goff MD Unavailable [phone] Allergies No known active allergies Medications [...] alert bracelet or necklace stating you have [place]'s disease and that you take steroids. 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 73 m2 [facility] Comment: Interpretive Data Reference Interval Normal >/= [...] MD LAB BLOOD ORDERABLES Final Result [facility] [address] Department [place] [address] * POCT hemoglobin A1c (12/20/2018 1:13 PM CDT) Hemoglobin A1C, POC 6.2 Blood specimen (specimen) 12/20/2018 1:13 PM CDT Jimy Mao MD POINT OF CARE TEST ORDERABLES Fi nal Result from Last 3 Months or Most Recently Relevant to Health Maintenance Insurance [facility] MEDICARE ADVANTAGE [facility] MEDICARE Address: [facility] [address] [place] [address] UHC MEDICARE ADVANTAGE [facility] MEDICARE Address: [facility] [address] [place] [address] Care Teams Pharmaceutical Laboratory Technician Relationship Specialty Start Date End Date Dario Brice MD PCP - General 03/01/07 William Goff MD Medical Oncologist/Hvac Technician Hematology and Oncology 02/07/19
--- OUTSIDE RECORDS SUMMARY | 2025-04-14 14:31 | XMS_ITS | Clinical Summary ---
Author Organization [facility] Sagrario May Address [address] [place] [address] Care Team Providers Care School Inspector Name Role Phone Jessica Brice MD Primary Care Provider [phone] Allergies No known active allergies Medications amLODIPine [...] Encounters Date Type Department Care Team Description 03/28/2025 External Device Data ST[facility] ABSTRACTION Provider, Abstract 03/27/2025 External Device Data [facility] ABSTRACTION Provider, Abstract 03/06/2025 External Device Data ST[facility] ABSTRACTION Provider, [...] Comments Blood Pressure 139/78 10/02/2024 10:53 AM DRESS OPERATOR Pulse 64 10/02/2024 10:53 AM DRESS OPERATOR Temperature 36.6 C (97.9 F) 10/02/2024 10:53 AM DRESS OPERATOR Respiratory Rate 16 10/02/2024 10:53 AM DRESS OPERATOR Oxygen Saturation 94% 10/02/2024 10:53 AM DRESS OPERATOR Inhaled Oxygen Concentration - - Weight 85.1 kg (187 lb 9.6 oz) 10/02/2024 10:53 AM DRESS OPERATOR Height 162.6 cm (5' 4) 09/09/2022 12:00 PM DRESS OPERATOR Body Mass Index 32.2 09/09/2022 12:00 PM DRESS OPERATOR Plan of Treatment Upcoming Encounters Date Type Department Care Team (Late st Contact Info) Description 07/02/2025 11:30 AM CDT Office Visit [facility] Oncology and Hematology - [place] [address] [place] [address] Janes Cruz MD [address] [facility] [address] [place] [address] Health Maintenance Due Date Last [...] YEARS Completed 1 , 06/13/2020, 11/17/2019 Insurance KODAK BALDWIN, [facility] [id number] [employer] System[employer]n BALDWIN, [facility] Care Teams School Inspector Relationship Specialty Start Date End Date Jessica Brice MD PCP - General Family Practice 09/09/22
--- OUTSIDE RECORDS SUMMARY | 2025-04-14 14:31 | XMS_ITS | Patient Health Record ---
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) Active confirmed Problem Iron deficiency anemia (31473810) Iron deficiency anemia, unspecified (D50.9) Active confirmed Problem Diverticulitis of colon (677598943) Diverticulitis of large intestine without perforation or abscess without bleeding (K57.32) Active confirmed Problem Left lower quadrant pain (R10.32) Active confirmed Problem Anorexia (89835529) Anorexia (R63.0) Active confirmed Problem Screening for malignant neoplasm of colon (466049829) Encounter for screening for malignant neoplasm of colon (Z12.11) Active confirmed Problem Diverticulitis (76877394) Diverticulitis (K57.32) Active confirmed Problem Anemia, unspecified (D64.9) Active confirmed Problem Chronic kidney disease stage 3A (disorder) (530789550) Chronic kidney disease, stage 3a (N18.31) Active confirmed Plan Of Treatment No Information Insurance Providers Payer Name Payer Address Payer Phone Subscriber Number Group Number Insured Name Patient Relationship to Insured Coverage Start Date Coverage End Date [facility] Medicare Advantage [address] [address] [place] [phone] [id number] Jennifer Dahl Self - patient is the insured Medical (General) History Medical History History ICD Code high blood pressure diabetes thyroid trouble kidney trouble amxiety and depression Surgical History Surgery Date(Month/Year) Hospitalization History Reason Date(Month/Year) diverticulitis 10/2021
== END 2025-04-14 13:58 | disposition home or self-care (01) ==
PROVIDERS: PCP Family Medicine; Visit Provider Student in an Organized Health Care Education/Training Program
DX: H53.8 Other visual disturbances (principal)
CPT/HCPCS: 70551

== ENCOUNTER 2025-05-05 08:08 | Emergency (ER) | payer MEDICARE, SELFPAY ==
--- NOTE | ~2025-05-05 | XR_ITS ---
XR foot LT min 3V, XR ankle LT min 3V 05/05/2025 08:37 Indication: Left foot pain Procedure: 4 views left foot and 4 views left ankle Comparison: No prior studies for comparison. Findings: There is a calcaneal avulsion fracture distal lateral aspect of the calcaneus. There is a large amount of adjacent soft tissue swelling. Ankle mortise intact. Small degenerative calcaneal enthesophytes. Lisfranc joint intact. No other fracture. Impression: 1: Minimally displaced calcaneal avulsion fracture distal laterally. Reviewed, dictated and finalized at location [facility]. Impression: 1: Minimally displaced calcaneal avulsion fracture distal laterally. Impression: 1: Minimally displaced calcaneal avulsion fracture distal laterally.
[2025-05-05 08:22] VITALS: BP 104/58; PULSE 76; RESP 16; TEMP 36.2; O2SAT 99
--- NOTE | 2025-05-05 09:00 | ED_ITS ---
HPI - General Adult General Chief complaint: Extremity Injury, Lower Stated complaint: L ANKLE INJURY Source: patient Mode of arrival: ambulatory Limitations: no limitations History of Present Illness HPI narrative: Patient presents for evaluation of left ankle / foot pain since yesterday. She indicates she tripped over a curb. She now has swelling and bruising noted to the dorsal aspect of the proximal and mid-section of the left foot. At rest her pain is minimal however with weightbearing her pain increases to 4/10 in severity. She took aleve for her symptoms but it did not provide substantial relief. She denies any paresthesias. Related Data Home Medications ?Medication ?Instructions ?Recorded ?Confirmed ?Last Taken ?Type alpha lipoic acid 50 mg capsule 50 mg PO DAILY 2 05/05/25 11/20/22 History cholecalciferol (vitamin D3) 25 25 mcg PO BID 02/02/23 05/05/25 Unknown History mcg (1,000 unit) tablet tretinoin 0.1 % topical cream applic topical 04/10/25 04/20/25 Unknown History Allergies Allergy/AdvReac Type Severity Reaction Status Date / Time semaglutide (From Ozempic) AdvReac Severe Abdominal Verified 04/20/25 10:26 Pain Review of Systems Review of Systems: CONSTITUTIONAL: Denies fever, chills, or sweats. EYES: Denies visual changes, redness, or discharge. ENT: Denies rhinorrhea, congestion, sore throat, or otalgia. CARDIOVASCULAR: Denies chest pain, palpitations, or edema. RESPIRATORY: Denies cough or dyspnea. GASTROINTESTINAL: Denies abdominal pain, nausea, vomiting, or diarrhea. GENITOURINARY: Denies dysuria or hematuria. SKIN: Reports bruising to the dorsal aspect of the proximal and mid-section of the left foot. Denies rash or itching. MUSCULOSKELETAL: Reports left foot/ankle pain and swelling NEUROLOGIC: Denies headache, numbness, dizziness, or weakness. PSYCHIATRIC: Denies anxiety or depression. [facility] Past Medical History Medical History Need for hepatitis C screening test negative 2022 Irritable bowel syndrome with diarrhea Elevated fecal calprotectin LLQ abdominal pain Unspecified hearing loss, unspecified ear Unspecified B-cell lymphoma, spleen Otosclerosis, unspecified Mixed hyperlipidemia Major depressive disorder, single episode, unspecified Lymphocytosis (symptomatic) Hypertonicity of bladder Diverticulosis of colon (without mention of hemorrhage) Congenital malformations of adrenal gland Anemia, unspecified Adrenal insufficiency (Piute's disease) Bronchitis Asthma Trigger finger HTN (hypertension) Frequent loose stools GERD (gastroesophageal reflux disease) Kidney disease Cancer Anxiety Surgical History Surgical History History of carpal tunnel release Family History Family History Mother Patient's mother is , Onset Age: 69 Family history of malignant neoplasm of ovary Father Patient's father is Diabetes mellitus, Onset Age: 64 Sibling Cerebrovascular accident, Onset Age: 23 Other Depression Family history of hearing loss Social History Social History Social History: Caffeine-Coffee, Tea, soda Smoking packs per day: 1 Smoking cigarettes per day: 20.0 Years smoked: 5 Smoking pack-years: 5.00 Smoking status: Former smoker Tobacco type: cigarettes Smoking end date: 09/13/97 Alcohol intake: current Drinks per week: 6 Alcohol use details: Wine-on weekends Substance use: never Substance use type: does not use Do You Feel Safe in your Home?: Yes Lack of Transportation: No Lack of Food: Never True Current Housing: I Have Housing Concerned About Future Housing: No Difficulty Paying Gas/Electric Bills: No Difficulty Paying for Meds: No Currently Unemployed: No Education: Bachelor's Degree Difficulty w/ Childcare or Family Care: No Living arrangements: with family Gender identity (if verbalized by the patient): Female Spiritual care concerns: No Exam Narrative: GENERAL: Well-appearing, well-nourished, and in no acute distress. HEAD: Normocephalic, atraumatic. EYES: PERRLA and EOMI. ENT: Nares clear, no rhinorrhea or epistaxis. Mucous membranes moist. Oropharynx without tonsillar hypertrophy exudate or other lesions. Bilateral TMs pearly lee nonbulging NECK: Supple. No adenopathy or masses. No carotid bruits or JVD CHEST: Clear to auscultation. No respiratory distress. No wheezes rales or rhonchi HEART: Regular rate and rhythm. No murmur heard. Normal peripheral pulses. ABDOMEN: Soft, nontender, nondistended, normal active bowel sounds. EXTREMITIES:Able to dorsi and plantarflex the left foot. Able to wiggle all digits of the left foot. There is tenderness to the dorsal aspect of the proximal and mid-sections of the left foot. Trace nonpitting edema to left foot SKIN: There is ecchymosis noted to the dorsal aspect of the proximal and mid section of the left foot. Warm, dry, no rash. NEURO: No focal deficits. Alert and oriented x3. PSYCH: Normal mood and affect. Course Course Emergency Course: This is a 69-year-old female who presented for evaluation of pain and swelling in the left ankle and foot. X-ray showed avulsion fracture of distal lateral aspect of the left calcaneus. I discussed all aspects of case with Orthopedic, Dr. Haynes, who was in agreement with plans for short leg OCL and mobilization with walker. Pt was placed in short left posterior OCL. She tolerated well. She will purchase a walker and use for mobilization. Dr Haynes will see her in clinic next week. She will call for appt. Will dc with hydrocodone. go to the emergency department for intractable pain, change in temperature or sensation. Patient in agreement with plan of care. Level of Care: Express Care Visit Vital Signs Vital signs: Vital Signs Temperature 36.2 C L 05/05/25 08:22 Pulse Rate 76 05/05/25 08:22 Respiratory Rate 16 05/05/25 08:22 Blood Pressure 104/58 L 05/05/25 08:22 Pulse Oximetry 99 05/05/25 08:22 Temperature 36.2 C L 05/05/25 08:22 Pulse Rate 76 05/05/25 08:22 Respiratory Rate 16 05/05/25 08:22 Blood Pressure 104/58 L 05/05/25 08:22 Pulse Oximetry 99 05/05/25 08:22 Procedures Orthopedic Splinting/Casting Injury #1: Splinting/Casting Date: 05/05/25 Splinting/Casting Time: 09:29 Side: left Lower Extremity Injury Location: foot Lower Extremity Immobilizer: posterior splint Splint: customized in ED OCL: short leg Pre-Procedure Neuro Vascular Exam: normal Post-Procedure Neuro Vascular Exam: normal Medical Decision Making Vital Signs Vital Signs: Vital Signs Temperature 36.2 C L 05/05/25 08:22 Pulse Rate 76 05/05/25 08:22 Respiratory Rate 16 05/05/25 08:22 Blood Pressure 104/58 L 05/05/25 08:22 Pulse Oximetry 99 05/05/25 08:22 Temperature 36.2 C L 05/05/25 08:22 Pulse Rate 76 05/05/25 08:22 Respiratory Rate 16 05/05/25 08:22 Blood Pressure 104/58 L 05/05/25 08:22 Pulse Oximetry 99 05/05/25 08:22 Imaging Data Radiologist's impression: XR foot LT min 3V, XR ankle LT min 3V 05/05/2025 08:37 Indication: Left foot pain Procedure: 4 views left foot and 4 views left ankle Comparison: No prior studies for comparison. Findings: There is a calcaneal avulsion fracture distal lateral aspect of the calcaneus. There is a large amount of adjacent soft tissue swelling. Ankle mortise intact. Small degenerative calcaneal enthesophytes. Lisfranc joint intact. No other fracture. Impression: 1: Minimally displaced calcaneal avulsion fracture distal laterally. Discharge Plan Discharge Clinical Impression: Avulsion fracture of calcaneus Patient Disposition: Home Condition: Stable Instructions: Antibiotic Form, Calcaneal Fracture (ED) Additional Instructions: PLEASE USE YOUR WALKER TO MOBILIZE CALL ORTHOPEDICS ON WEDNESDAY FOR AN APPOINTMENT Patient Language: Bur[place]ian Prescriptions: New hydrocodone-acetaminophen 5-325 mg tablet 1 - 2 tablet PO Q6H PRN (Reason: pain) Qty: 20 0RF No Action alpha lipoic acid 50 mg capsule 50 mg PO DAILY Jardiance 10 mg tablet 10 mg PO DAILY Qty: 30 8RF cholecalciferol (vitamin D3) 25 mcg (1,000 unit) tablet 25 mcg PO BID tretinoin 0.1 % cream topical dicyclomine 20 mg tablet 20 mg PO QID PRN (Reason: abdominal pain) Qty: 120 2RF (DME) Contour Next Test Strips Strip See Rx Instructions .Route Qty: 300 1RF Rx Instructions: check three times a day (DME) Dexcom G6 Sensor Device See Rx Instructions .ROUTE .MEDSUPPLY Qty: 9 3RF Rx Instructions: As directed (DME) Dexcom G6 Transmitter Device See Rx Instructions .ROUTE .MEDSUPPLY Qty: 1 3RF Rx Instructions: As directed ([facility] [place]) Omnipod 5 G6 Pods (Gen 5) Cartridge See Rx Instructions .ROUTE .COMPLEX Qty: 45 2RF Dose Instruction: CHANGE SENSOR EVERY 3 DAYS Rx Instructions: CHANGE SENSOR EVERY 2 DAYS atorvastatin 40 mg tablet See Rx Instructions .ROUTE .COMPLEX Qty: 90 3RF Dose Instruction: TAKE 1 TABLET BY MOUTH DAILY Rx Instructions: TAKE 1 TABLET BY MOUTH DAILY hydrocortisone 20 mg tablet 20 mg PO BID Qty: 180 1RF levothyroxine [Synthroid] 150 mcg tablet See Rx Instructions .ROUTE .COMPLEX Qty: 78 3RF Dose Instruction: TAKE 1 TABLET BY MOUTH DAILY Rx Instructions: TAKE brand Synthroid 1 TABLET BY MOUTH 6 days a week from Wednesday to Wednesday, skip Sundays lamotrigine 150 mg tablet 150 mg PO DAILY Qty: 90 1RF irbesartan 300 mg tablet 300 mg PO DAILY Qty: 90 1RF trazodone 100 mg tablet 100 mg PO QHS PRN (Reason: insomnia) Qty: 90 1RF diclofenac sodium 75 mg tablet,delayed release (DR/EC) 75 mg PO BID Qty: 180 1RF icosapent ethyl [Vascepa] 1 gram capsule 2 g PO BID Qty: 360 0RF insulin lispro [Humalog U-100 Insulin] 100 unit/mL solution See Rx Instructions .ROUTE .COMPLEX Qty: 100 2RF Dose Instruction: INJECT SUBCUTANEOUSLY 100 UNITS VIA CONTINUOUS INFUSION DAILY Rx Instructions: INJECT SUBCUTANEOUSLY 100 UNITS VIA CONTINUOUS INFUSION DAILY sertraline 25 mg tablet See Rx Instructions .ROUTE .COMPLEX Qty: 90 1RF Dose Instruction: TAKE 1 TABLET BY MOUTH DAILY Rx Instructions: TAKE 1 TABLET BY MOUTH DAILY ([facility] [place]) Omnipod 5 G6-G7 Pods (Gen 5) Cartridge See Rx Instructions .ROUTE .COMPLEX Qty: 30 0RF Dose Instruction: USE DIRECTED. CHANGE EVERY TWO AND A HALF DAYS Rx Instructions: USE DIRECTED. CHANGE EVERY TWO AND A HALF DAYS omeprazole 20 mg capsule,delayed release(DR/EC) 20 mg PO DAILY Qty: 90 1RF Baqsimi 3 mg/actuation spray,non-aerosol 3 mg intranasal ONCE PRN (Reason: hypoglycemia) Qty: 1 1RF Rx Instructions: as a single dose alprazolam 1 mg tablet 1 mg PO BID Qty: 180 1RF Mounjaro 5 mg/0.5 mL pen injector 5 mg subcut WEEKLY Qty: 6 1RF fluoxetine 40 mg capsule 80 mg PO DAILY Qty: 180 1RF Follow-up/Referrals: Kiran Haynes MD [Physician, Orthopedics] Time of Disposition: 09:08
== END 2025-05-05 09:22 | disposition home or self-care (01) ==
PROVIDERS: Emergency Provider Nurse Practitioner; PCP Family Medicine
DX: S92.002A Unspecified fracture of left calcaneus, initial encounter for closed fracture (principal); W10.1XXA Fall (on)(from) sidewalk curb, initial encounter; E78.2 Mixed hyperlipidemia; E27.1 Primary adrenocortical insufficiency; J45.909 Unspecified asthma, uncomplicated; I10 Essential (primary) hypertension; K21.9 Gastro-esophageal reflux disease without esophagitis; F32.9 Major depressive disorder, single episode, unspecified; F41.9 Anxiety disorder, unspecified; D64.9 Anemia, unspecified; Z85.72 Personal history of non-Hodgkin lymphomas
CPT/HCPCS: 29515; 73610; 73630; 99214; G0463

== ENCOUNTER 2025-08-16 12:31 | Outpatient (CLI) | payer MEDICARE, SELFPAY ==
[2025-08-16 13:23] LABS: Hematocrit 37.6 % (37.0-47.0); Hemoglobin 12.1 g/dL (12.0-15.0); Mean Corpuscular HGB Conc 32.2 g/dl (32-36); Mean Corpuscular Hemoglobin 30.3 pg (26-34); Mean Corpuscular Volume 94.0 fl (80-100); Platelet Count Result 209 k/mm3 (150-375); Red Blood Count 4.00 M/mm3 (4.2-5.4); White Blood Count 14.1 K/mm3 (4.5-10.0)
[2025-08-16 13:34] LABS: Total Protein Urine Random 13 mg/dL; Ur Ttl Prot Creatinine Ratio 0.13 mg/mg (0-0.20)
[2025-08-16 13:42] LABS: Alanine Aminotransferase 48 U/L (6-35); Albumin Level 4.2 g/dL (3.5-5.1); Alkaline Phosphatase 104 U/L (38-126); Anion Gap 7 mmol/L (4-12); Aspartate Amino Transferase 38 U/L (14-36); Bilirubin,Total 0.7 mg/dL (0.2-1.3); Blood Urea Nitrogen 14 mg/dL (7-17); Calcium 9.4 mg/dL (8.4-10.2); Carbon Dioxide 25 mmol/L (22-30); Chloride 102 mmol/L (98-107); Estimated Glomerular Filt Rate 48; Glucose 219 mg/dL (65-110); Potassium 4.4 mmol/L (3.4-5.0); Sodium 134 mmol/L (137-145); Total Protein 6.7 g/dL (6.3-8.2)
[2025-08-16 13:50] LABS: Parathyroid Intact 28.6 pg/mL (14.5-75.2)
[2025-08-16 14:13] LABS: Hemoglobin A1C 6.0 % (<5.7)
[2025-08-16 14:18] LABS: Thyroid Stimulating Hormone 0.500 uIU/mL (0.465-4.680)
== END 2025-08-16 12:32 | disposition home or self-care (01) ==
LOC: ANHLAB 12:33
PROVIDERS: Internal Medicine Endocrinology, Diabetes & Metabolism; PCP Family Medicine; Visit Provider Internal Medicine Nephrology
DX: E10.65 Type 1 diabetes mellitus with hyperglycemia (principal); E78.5 Hyperlipidemia, unspecified; E03.9 Hypothyroidism, unspecified; K85.90 Acute pancreatitis without necrosis or infection, unspecified; K75.81 Nonalcoholic steatohepatitis (NASH); E55.9 Vitamin D deficiency, unspecified; N28.9 Disorder of kidney and ureter, unspecified; E87.1 Hypo-osmolality and hyponatremia; N18.31 Chronic kidney disease, stage 3a
CPT/HCPCS: 36415; 80053; 82306; 82570; 83036; 83970; 84156; 84443; 85027

== ENCOUNTER 2025-09-07 13:54 | Outpatient (CLI) | payer MEDICARE, SELFPAY ==
--- NOTE | ~2025-09-07 | XR_ITS ---
EXAMINATION: XR chest 2V 09/07/2025 14:11 INDICATION: Shortness of breath PROCEDURE: 2 view chest COMPARISON: 11/20/2022 FINDINGS: The lungs are clear. The cardiomediastinal silhouette is within normal limits. There are no pleural effusions. There is no pneumothorax suspected. IMPRESSION: 1: NO ACUTE CARDIOPULMONARY DISEASE. Reviewed, dictated and finalized at location [facility]. [employer]
== END 2025-09-07 13:55 | disposition home or self-care (01) ==
PROVIDERS: PCP Family Medicine; Visit Provider Nurse Practitioner Family
DX: R06.02 Shortness of breath (principal)
CPT/HCPCS: 71046